=== PATIENT | female | born 1950 | race Caucasian/White ===

== ENCOUNTER 2020-11-18 15:03 | Outpatient (REF) | payer MEDICARE, MEDICAID, OTHER, SELFPAY | END 2020-11-18 15:04 | disposition home or self-care (01) | LOC: HO.LAB 15:03 | PROVIDERS: Visit Provider Internal Medicine | DX: Z20.828 Contact with and (suspected) exposure to other viral communicable diseases (principal) | CPT/HCPCS: C9803; U0003 ==

== ENCOUNTER 2022-12-31 14:50 | Inpatient (IN) | payer MEDICARE, OTHER, SELFPAY ==
[2022-12-31] VITALS (19 sets, daily range): BP systolic 104–148; BP diastolic 66–92; PULSE 98–120; RESP 16–33; TEMP 36.4–37.2; O2SAT 92–100; BMI 27.3
--- NOTE | ~2022-12-31 | CT_ITS ---
EXAMINATION: CT abdomen pelvis wo IV con CLINICAL INFORMATION: Reason for Exam Constipation/urinary retention. lump in RLQ COMPARISON: No prior CT available for comparison. TECHNIQUE: Multidetector volumetric imaging was performed from the superior aspect of the liver through the pubic symphysis , noncontrasted study. Sagittal and coronal reformatted images were obtained on the technologist's workstation. This CT examination was performed using dose optimization techniques as appropriate, variously including the following: *Automated exposure control *Adjustment of mA and/or kV according to patient size (this includes techniques or standardized protocols for targeted exams where dose is matched to indication/reason for exam; i.e. extremities or head) *Use of iterative reconstruction technique DLP: 582 mGy-cm FINDINGS: LOWER THORAX: Included lung bases are clear. HEPATOBILIARY: No focal hepatic lesions. No biliary ductal dilatation. GALLBLADDER: There is a tiny gallstone, gallbladder is distended. SPLEEN: Spleen is normal in size. PANCREAS: No focal mass or ductal dilatation. STOMACH AND GASTROINTESTINAL TRACT: Stomach is fluid-filled distended. Dilated small bowels, transition zone within hernia right inguinal region containing loops of small bowel's the hernia measure roughly 7 x 6.3 cm. The neck of which is about 3 cm. There is no CT evidence of bowel perforation or free air. This is concerning for possible small bowel incarceration and/or strangulation. No CT evidence of appendicitis. ADRENALS: No adrenal nodules. KIDNEYS/URETERS: No hydronephrosis, stones or solid mass lesions. URINARY BLADDER: Partially decompressed. PELVIC VISCERA: Unremarkable PERITONEUM: No free air or fluid. LYMPH NODES: No lymphadenopathy. VASCULAR:Abdominal aorta normal in size, no aneurysm found. BONES, ABDOMINAL WALL AND SOFT TISSUES: Hardware ORIF left femur causing beam hardening artifact. Otherwise unremarkable. Age-appropriate changes of the spine and skeletal system, no destructive osteolytic or osteosclerotic bone lesion found CT/CT abdomen pelvis wo IV con IMPRESSION: * High-grade small bowel obstruction, transition zone within a right inguinal hernia containing loops of small bowel, the neck of which is about 3 cm. There is no CT evidence of bowel perforation or free air at this time. * Urgent surgical evaluation warranted. * Tiny gallstone. Cholelithiasis. (Referring physician staff is being called, to be alerted of the above findings and recommendations.) TC
--- NOTE | ~2022-12-31 | XR_ITS ---
EXAMINATION: XR CHEST CLINICAL INFORMATION: AML COMPARISON: None TECHNIQUE: Frontal view of the chest was obtained. FINDINGS: No significant abnormality is noted involving the heart, lungs, mediastinum, bony thorax or soft tissues. XR/XR chest 1V IMPRESSION: Unremarkable examination.
--- NOTE | 2022-12-31 15:14 | ED_ITS ---
HPI - Female Genitourinary General Chief complaint: Urogenital-Female <LUCAS Arteaga - Last Filed: 12/31/22 15:20> Stated complaint: unable to use bathroom, hallucination <LUCAS Arteaga - Last Filed: 12/31/22 15:20> Time Seen by Provider: 12/31/22 17:08 <LUCAS Arteaga - Last Filed: 12/31/22 15:20> Source: patient and family <Sera Conway NP - Last Filed: 12/31/22 18:50> Mode of arrival: ambulatory <Sera Conway NP - Last Filed: 12/31/22 18:50> Limitations: language barrier <Sera Conway NP - Last Filed: 12/31/22 18:50> History of Present Illness HPI Narrative: 72-year-old female presents with daughter, for evaluation for inability to pass bowels and urine for 3 days, abdominal pain, nausea, poor p.o. intake, and abdominal distention. Patient has dementia per baseline, is able to make her needs known but is not the best historian. <Sera Conway NP - Last Filed: 12/31/22 18:50> Onset (ago): day(s) <Sera Conway NP - Last Filed: 12/31/22 18:50> Severity: severe <Sera Conway NP - Last Filed: 12/31/22 18:50> Severity scale (1-10): 10 <Sera Conway NP - Last Filed: 12/31/22 18:50> Quality of pain: cramping and aching <Sera Conway NP - Last Filed: 12/31/22 18:50> Consistency: constant <Sera Conway NP - Last Filed: 12/31/22 18:50> Urinary symptoms: Difficulty Urinating (Oliguria) <Sera Conway NP - Last Filed: 12/31/22 18:50> Exacerbating factors: movement and palpation <Sera Conway NP - Last Filed: 12/31/22 18:50> Relieving factors: none <Sera Conway NP - Last Filed: 12/31/22 18:50> Associated symptoms: abdominal pain, loss of appetite, chills, nausea and constipation <JANEEN Vicente Last Filed: 12/31/22 18:50> Treatment prior to arrival: none <Sera Conway NP - Last Filed: 12/31/22 18:50> Sexual activity: No <JANEEN Vicente Last Filed: 12/31/22 18:50> Patient : No <Sera Conway NP - Last Filed: 12/31/22 18:50> Related Data Home medications: Home Medications Medication Instructions Recorded Confirmed amlodipine 10 mg tablet 1 tab PO DAILY 12/31/22 12/31/22 cholecalciferol (vitamin D3) 50 1 tab PO BEDTIME 12/31/22 12/31/22 mcg (2,000 unit) tablet escitalopram oxalate 10 mg tablet 1 tab PO DAILY 12/31/22 12/31/22 losartan 25 mg tablet 1 tab PO BEDTIME 12/31/22 12/31/22 memantine 5 mg tablet 1 tab PO BEDTIME 12/31/22 12/31/22 simethicone 180 mg capsule 1 cap PO BID 12/31/22 12/31/22 <LUCAS Arteaga Last Filed: 12/31/22 15:20> Allergies/Adverse reactions: Allergies Allergy/AdvReac Type Severity Reaction Status Date / Time No Known Allergies Allergy Verified 12/31/22 15:13 <LUCAS Arteaga Last Filed: 12/31/22 15:20> Review of Systems Review of Systems: Constitutional: No Fever, positive Chills ENT/Mouth: No Ear Pain, No Hoarseness, No sore throat Eyes: No Eye Pain, No Swelling, No Redness, No Foreign Body Cardiovascular: No Chest Pain, No SOB Respiratory: No Cough, No Dyspnea Gastrointestinal: Positive Nausea, No Vomiting, of constipation, No Diarrhea, positive abdominal Pain, positive distention Genitourinary: Positive oliguria, No Dysuria, No Hematuria Musculoskeletal: No joint pain, No Myalgias, No Joint Swelling Skin: No Skin lacerations, No rash Neuro: Positive Weakness, No Numbness, No Paresthesias, No Loss of Consciousness, No Dizziness, No Headache <JANEEN Vicente Last Filed: 12/31/22 18:50> Yes Unobtainable due to mental condition (Dementia, ROS obtained from daughter) <Sera Conway NP - Last Filed: 12/31/22 18:50> [facility] Past Medical History Attestation statement: The following information was validated with the patient. <Sera Conway NP - Last Filed: 12/31/22 18:50> Source: old records reviewed <Sera Conway NP - Last Filed: 12/31/22 18:50> Social History Social History: Social History Advance Directives: No Advance Directives Information Provided: No Patient : No <LUCAS Arteaga - Last Filed: 12/31/22 15:20> Physical Exam Vital Signs: Vital Signs: Last Vital Signs Temp 97.6 F 12/31/22 16:34 Pulse 105 H 12/31/22 16:34 Resp 16 12/31/22 16:34 BP 139/81 12/31/22 16:34 Pulse Ox 100 12/31/22 16:34 O2 Del Method 12/31/22 16:34 BMI result Body Mass Index 27.3 <LUCAS Arteaga - Last Filed: 12/31/22 15:20> Vital Signs: Last Vital Signs Temp 97.6 F 12/31/22 16:34 Pulse 105 H 12/31/22 16:34 Resp 16 12/31/22 16:34 BP 139/81 12/31/22 16:34 Pulse Ox 100 12/31/22 16:34 O2 Del Method 12/31/22 16:34 BMI result Body Mass Index 27.3 <Sera Conway NP - Last Filed: 12/31/22 18:50> Appearance: Alert. Oriented to self. Moderate distress. Eyes: Pupils equal, round and reactive to light. ENT: Pharynx normal. Neck: Normal inspection. Neck supple. CVS: Normal heart rate and rhythm. Pulses normal. Respiratory: No respiratory distress. Breath sounds normal. Abdomen: Soft and diffusely tender and distended. Skin: Skin warm and dry. Normal skin color. Normal skin turgor. Extremities: No lower extremity edema. Moves all extremities against resistanc e. Gait not assessed for safety. Neuro: No motor deficit. No sensory deficit. Cranial nerves 2-12 intact <Sera Conway NP - Last Filed: 12/31/22 18:50> Course Course Course Narrative: RME-- 72yo F w/PMHx dementia presenting to the ED complaining of constipation & urinary retention x3 days. Daughter also reports palpable lump to right lower quadrant. Patient with baseline dementia, daughter reports increasing confusion/agitation. Patient mildly tachycardic, shaky, Palpable lump to RLQ, abd soft. Low suspicion for severe sepsis at this time EKG, labs, UA ordered in triage <LUCAS Arteaga - Last Filed: 12/31/22 15:20> RME-- 72yo F w/PMHx dementia presenting to the ED complaining of constipation & urinary retention x3 days. Daughter also reports palpable lump to right lower quadrant. Patient with baseline dementia, daughter reports increasing confusion/agitation. Patient mildly tachycardic, shaky, Palpable lump to RLQ, abd soft. Low suspicion for severe sepsis at this time EKG, labs, UA ordered in triage 16:[address] scan were completed while she was in the emergency department waiting room. A review of the CT scan indicates critical findings of small-bowel obstruction. I did call the surgeon continuity reader as soon as I read this result, white count indicates 18.9, will order lactic, cultures, given Zosyn, 2 L of fluid to equal 30 milliliters/kilogram 63 kg per weight. Will give morphine, Zofran, and NG tube placement. 18:38 consent was obtained for moderate sedation for incarcerated hernia reduction, All questions answered by this TREE FALLER and surgeon For the family. patient's daughter signed the consent, patient's daughter is a primary caregiver, patient does have dementia and is unable to consent on her own. Dr. Staley at bedside with this TREE FALLER. In total patient received 50 mcg of fentanyl and 50 mg of propofol. Vital signs were within normal limits, no adverse reactions during moderate sedation. Dr. Staley unable to successfully reduce the hernia, plan of care is for surgical intervention. <Sera Conway NP - Last Filed: 12/31/22 18:50> Consultations Consultation #1: Rebeka <Sera Conwya NP - Last Filed: 12/31/22 18:50> Medical Decision Making Differential Diagnosis Differential Diagnoses: The differential diagnosis associated with the presentation includes <Sera Conway NP - Last Filed: 12/31/22 18:50> SBO <Sear Conway NP - Last Filed: 12/31/22 18:50> Admission/Observation Consideration of admission/observation: Escalation of care including admission/observation considered <Sera Conway NP - Last Filed: 12/31/22 18:50> Requires admission <Sera Conway NP - Last Filed: 12/31/22 18:50> Consult Healthcare Provider Management of the patient was discussed with: Program Counselor <Sera Conway NP - Last Filed: 12/31/22 18:50> Surgery <Sera Conway NP - Last Filed: 12/31/22 18:50> Lab Data MDM Lab Attestation statement: I reviewed the patient's lab results. <Sera Conway NP - Last Filed: 12/31/22 18:50> Result Diagrams: 12/31/22 16:26 12/31/22 16:25 <LUCAS Arteaga - Last Filed: 12/31/22 15:20> Labs: Lab Results 12/31/22 12/31/22 12/31/22 Range/Units 16:25 16:25 16:25 WBC (4.8-10.8) X10*3/uL RBC (4.20-5.50) X10*6/uL Hgb (12.0-16.0) g/dl Hct (37.0-47.0) % MCV (80.0-98.0) fL MCH (27.0-33.0) pg MCHC (31.0-35.0) g/dl RDW (11.0-16.0) % Plt Count (160-400) X10*3/uL MPV (9.4-12.3) fL Immature Gran % (Auto) Neut % (Auto) Lymph % (Auto) Mclennan % (Auto) Eos % (Auto) Baso % (Auto) Lymph # (Auto) Mclennan # (Auto) Eos # (Auto) Baso # (Auto) Abs Immat Gran (auto) Absolute Neuts (auto) Absolute Nucleated RBC (0.0-0.012) X10*3/uL Nucleated RBC % (auto) (0.0-0.2) /100WBC Neutrophils % (Manual) (45-73) % Band Neutrophils % (3-5) % Lymphocytes % (Manual) (20-40) % Monocytes % (Manual) (2-11) % Abs Neuts (Manual) (2.0-8.3) X10*3/uL Lymphocytes # (Manual) (1.2-4.9) X10*3/uL Monocytes # (Manual) (0.1-1.2) X10*3/uL Platelet Estimate (NORMAL) Plt Morphology Comment RBC Morphology PT (10.0-13.1) SEC INR (0.9-1.1) Sodium 136 (135-145) mmol/L Potassium 4.3 (3.3-5.1) mmol/L Chloride 98 (96-108) mmol/L Carbon Dioxide 19 L (22-29) mmol/L Anion Gap 23 H (12-20) BUN 41 H (9-16) mg/dL Creatinine 1.83 H (0.5-1.4) mg/dL Estim Creat Clear Calc 23.4 Estimated GFR 27 Random Glucose 167 H (60-115) mg/dL Lactic Acid (0.5-2.0) mmol/L Calcium 9.9 (8.4-10.2) mg/dL Magnesium 1.8 (1.6-2.6) mg/dL Total Bilirubin 0.9 (0.0-1.0) mg/dL Direct Bilirubin 0.4 (0.0-0.5) mg/dL AST 15 (5-31) U/L ALT 10 (0-31) U/L Alkaline Phosphatase 88 (39-117) U/L Ammonia 34 (13-55) umol/L Troponin I High Sens 10.2 (<3.5-17.0) ng/L Total Protein 7.4 (6.5-8.0) g/dL Albumin 4.4 (3.5-5.0) g/dL Lipase 13 (8-78) U/L Influenza Type A (PCR) (Negative) Influenza Type B (PCR) (Negative) RSV RNA Qual (PCR) (Negative) SARS-CoV-2 RNA (RT-PCR) (Negative) 12/31/22 12/31/22 12/31/22 Range/Units 16:26 16:26 16:26 WBC 18.6 H (4.8-10.8) X10*3/uL RBC 5.02 (4.20-5.50) X10*6/uL Hgb 14.6 (12.0-16.0) g/dl Hct 44.5 (37.0-47.0) % MCV 88.6 (80.0-98.0) fL MCH 29.1 (27.0-33.0) pg MCHC 32.8 (31.0-35.0) g/dl RDW 12.5 (11.0-16.0) % Plt Count 458 H (160-400) X10*3/uL MPV 9.8 (9.4-12.3) fL Immature Gran % (Auto) Cancelled Neut % (Auto) Cancelled Lymph % (Auto) Cancelled Mclennan % (Auto) Cancelled Eos % (Auto) Cancelled Baso % (Auto) Cancelled Lymph # (Auto) Cancelled Mclennan # (Auto) Cancelled Eos # (Auto) Cancelled Baso # (Auto) Cancelled Abs Immat Gran (auto) Cancelled Absolute Neuts (auto) Cancelled Absolute Nucleated RBC 0.000 (0.0-0.012) X10*3/uL Nucleated RBC % (auto) 0.0 (0.0-0.2) /100WBC Neutrophils % (Manual) 88 H (45-73) % Band Neutrophils % 0 L (3-5) % Lymphocytes % (Manual) 4 L (20-40) % Monocytes % (Manual) 8 (2-11) % Abs Neuts (Manual) 16.4 H (2.0-8.3) X10*3/uL Lymphocytes # (Manual) 0.7 L (1.2-4.9) X10*3/uL Monocytes # (Manual) 1.5 H (0.1-1.2) X10*3/uL Platelet Estimate NORMAL (NORMAL) Plt Morphology Comment NORMAL RBC Morphology NORMAL PT 12.1 (10.0-13.1) SEC INR 1.1 (0.9-1.1) Sodium (135-145) mmol/L Potassium (3.3-5.1) mmol/L Chloride (96-108) mmol/L Carbon Dioxide (22-29) mmol/L Anion Gap (12-20) BUN (9-16) mg/dL Creatinine (0.5-1.4) mg/dL Estim Creat Clear Calc Estimated GFR Random Glucose (60-115) mg/dL Lactic Acid (0.5-2.0) mmol/L Calcium (8.4-10.2) mg/dL Magnesium (1.6-2.6) mg/dL Total Bilirubin (0.0-1.0) mg/dL Direct Bilirubin (0.0-0.5) mg/dL AST (5-31) U/L ALT (0-31) U/L Alkaline Phosphatase (39-117) U/L Ammonia (13-55) umol/L Troponin I High Sens (<3.5-17.0) ng/L Total Protein (6.5-8.0) g/dL Albumin (3.5-5.0) g/dL Lipase (8-78) U/L Influenza Type A (PCR) NEGATIVE (Negative) Influenza Type B (PCR) NEGATIVE (Negative) RSV RNA Qual (PCR) NEGATIVE (Negative) SARS-CoV-2 RNA (RT-PCR) NEGATIVE (Negative) 12/31/22 Range/Units 17:59 WBC (4.8-10.8) X10*3/uL RBC (4.20-5.50) X10*6/uL Hgb (12.0-16.0) g/dl Hct (37.0-47.0) % MCV (80.0-98.0) fL MCH (27.0-33.0) pg MCHC (31.0-35.0) g/dl RDW (11.0-16.0) % Plt Count (160-400) X10*3/uL MPV (9.4-12.3) fL Immature Gran % (Auto) Neut % (Auto) Lymph % (Auto) Mclennan % (Auto) Eos % (Auto) Baso % (Auto) Lymph # (Auto) Mclennan # (Auto) Eos # (Auto) Baso # (Auto) Abs Immat Gran (auto) Absolute Neuts (auto) Absolute Nucleated RBC (0.0-0.012) X10*3/uL Nucleated RBC % (auto) (0.0-0.2) /100WBC Neutrophils % (Manual) (45-73) % Band Neutrophils % (3-5) % Lymphocytes % (Manual) (20-40) % Monocytes % (Manual) (2-11) % Abs Neuts (Manual) (2.0-8.3) X10*3/uL Lymphocytes # (Manual) (1.2-4.9) X10*3/uL Monocytes # (Manual) (0.1-1.2) X10*3/uL Platelet Estimate (NORMAL) Plt Morphology Comment RBC Morphology PT (10.0-13.1) SEC INR (0.9-1.1) Sodium (135-145) mmol/L Potassium (3.3-5.1) mmol/L Chloride (96-108) mmol/L Carbon Dioxide (22-29) mmol/L Anion Gap (12-20) BUN (9-16) mg/dL Creatinine (0.5-1.4) mg/dL Estim Creat Clear Calc Estimated GFR Random Glucose (60-115) mg/dL Lactic Acid 1.1 (0.5-2.0) mmol/L Calcium (8.4-10.2) mg/dL Magnesium (1.6-2.6) mg/dL Total Bilirubin (0.0-1.0) mg/dL Direct Bilirubin (0.0-0.5) mg/dL AST (5-31) U/L ALT (0-31) U/L Alkaline Phosphatase (39-117) U/L Ammonia (13-55) umol/L Troponin I High Sens (<3.5-17.0) ng/L Total Protein (6.5-8.0) g/dL Albumin (3.5-5.0) g/dL Lipase (8-78) U/L Influenza Type A (PCR) (Negative) Influenza Type B (PCR) (Negative) RSV RNA Qual (PCR) (Negative) SARS-CoV-2 RNA (RT-PCR) (Negative) <LUCAS Arteaga - Last Filed: 12/31/22 15:20> Lab Results 12/31/22 12/31/22 12/31/22 Range/Units 16:25 16:25 16:25 WBC (4.8-10.8) X10*3/uL RBC (4.20-5.50) X10*6/uL Hgb (12.0-16.0) g/dl Hct (37.0-47.0) % MCV (80.0-98.0) fL MCH (27.0-33.0) pg MCHC (31.0-35.0) g/dl RDW (11.0-16.0) % Plt Count (160-400) X10*3/uL MPV (9.4-12.3) fL Immature Gran % (Auto) Neut % (Auto) Lymph % (Auto) Mclennan % (Auto) Eos % (Auto) Baso % (Auto) Lymph # (Auto) Mclennan # (Auto) Eos # (Auto) Baso # (Auto) Abs Immat Gran (auto) Absolute Neuts (auto) Absolute Nucleated RBC (0.0-0.012) X10*3/uL Nucleated RBC % (auto) (0.0-0.2) /100WBC Neutrophils % (Manual) (45-73) % Band Neutrophils % (3-5) % Lymphocytes % (Manual) (20-40) % Monocytes % (Manual) (2-11) % Abs Neuts (Manual) (2.0-8.3) X10*3/uL Lymphocytes # (Manual) (1.2-4.9) X10*3/uL Monocytes # (Manual) (0.1-1.2) X10*3/uL Platelet Estimate (NORMAL) Plt Morphology Comment RBC Morphology PT (10.0-13.1) SEC INR (0.9-1.1) Sodium 136 (135-145) mmol/L Potassium 4.3 (3.3-5.1) mmol/L Chloride 98 (96-108) mmol/L Carbon Dioxide 19 L (22-29) mmol/L Anion Gap 23 H (12-20) BUN 41 H (9-16) mg/dL Creatinine 1.83 H (0.5-1.4) mg/dL Estim Creat Clear Calc 23.4 Estimated GFR 27 Random Glucose 167 H (60-115) mg/dL Lactic Acid (0.5-2.0) mmol/L Calcium 9.9 (8.4-10.2) mg/dL Magnesium 1.8 (1.6-2.6) mg/dL Total Bilirubin 0.9 (0.0-1.0) mg/dL Direct Bilirubin 0.4 (0.0-0.5) mg/dL AST 15 (5-31) U/L ALT 10 (0-31) U/L Alkaline Phosphatase 88 (39-117) U/L Ammonia 34 (13-55) umol/L Troponin I High Sens 10.2 (<3.5-17.0) ng/L Total Protein 7.4 (6.5-8.0) g/dL Albumin 4.4 (3.5-5.0) g/dL Lipase 13 (8-78) U/L Influenza Type A (PCR) (Negative) Influenza Type B (PCR) (Negative) RSV RNA Qual (PCR) (Negative) SARS-CoV-2 RNA (RT-PCR) (Negative) 12/31/22 12/31/22 12/31/22 Range/Units 16:26 16:26 16:26 WBC 18.6 H (4.8-10.8) X10*3/uL RBC 5.02 (4.20-5.50) X10*6/uL Hgb 14.6 (12.0-16.0) g/dl Hct 44.5 (37.0-47.0) % MCV 88.6 (80.0-98.0) fL MCH 29.1 (27.0-33.0) pg MCHC 32.8 (31.0-35.0) g/dl RDW 12.5 (11.0-16.0) % Plt Count 458 H (160-400) X10*3/uL MPV 9.8 (9.4-12.3) fL Immature Gran % (Auto) Cancelled Neut % (Auto) Cancelled Lymph % (Auto) Cancelled Mclennan % (Auto) Cancelled Eos % (Auto) Cancelled Baso % (Auto) Cancelled Lymph # (Auto) Cancelled Mclennan # (Auto) Cancelled Eos # (Auto) Cancelled Baso # (Auto) Cancelled Abs Immat Gran (auto) Cancelled Absolute Neuts (auto) Cancelled Absolute Nucleated RBC 0.000 (0.0-0.012) X10*3/uL Nucleated RBC % (auto) 0.0 (0.0-0.2) /100WBC Neutrophils % (Manual) 88 H (45-73) % Band Neutrophils % 0 L (3-5) % Lymphocytes % (Manual) 4 L (20-40) % Monocytes % (Manual) 8 (2-11) % Abs Neuts (Manual) 16.4 H (2.0-8.3) X10*3/uL Lymphocytes # (Manual) 0.7 L (1.2-4.9) X10*3/uL Monocytes # (Manual) 1.5 H (0.1-1.2) X10*3/uL Platelet Estimate NORMAL (NORMAL) Plt Morphology Comment NORMAL RBC Morphology NORMAL PT 12.1 (10.0-13.1) SEC INR 1.1 (0.9-1.1) Sodium (135-145) mmol/L Potassium (3.3-5.1) mmol/L Chloride (96-108) mmol/L Carbon Dioxide (22-29) mmol/L Anion Gap (12-20) BUN (9-16) mg/dL Creatinine (0.5-1.4) mg/dL Estim Creat Clear Calc Estimated GFR Random Glucose (60-115) mg/dL Lactic Acid (0.5-2.0) mmol/L Calcium (8.4-10.2) mg/dL Magnesium (1.6-2.6) mg/dL Total Bilirubin (0.0-1.0) mg/dL Direct Bilirubin (0.0-0.5) mg/dL AST (5-31) U/L ALT (0-31) U/L Alkaline Phosphatase (39-117) U/L Ammonia (13-55) umol/L Troponin I High Sens (<3.5-17.0) ng/L Total Protein (6.5-8.0) g/dL Albumin (3.5-5.0) g/dL Lipase (8-78) U/L Influenza Type A (PCR) NEGATIVE (Negative) Influenza Type B (PCR) NEGATIVE (Negative) RSV RNA Qual (PCR) NEGATIVE (Negative) SARS-CoV-2 RNA (RT-PCR) NEGATIVE (Negative) 12/31/22 Range/Units 17:59 WBC (4.8-10.8) X10*3/uL RBC (4.20-5.50) X10*6/uL Hgb (12.0-16.0) g/dl Hct (37.0-47.0) % MCV (80.0-98.0) fL MCH (27.0-33.0) pg MCHC (31.0-35.0) g/dl RDW (11.0-16.0) % Plt Count (160-400) X10*3/uL MPV (9.4-12.3) fL Immature Gran % (Auto) Neut % (Auto) Lymph % (Auto) Mclennan % (Auto) Eos % (Auto) Baso % (Auto) Lymph # (Auto) Mclennan # (Auto) Eos # (Auto) Baso # (Auto) Abs Immat Gran (auto) Absolute Neuts (auto) Absolute Nucleated RBC (0.0-0.012) X10*3/uL Nucleated RBC % (auto) (0.0-0.2) /100WBC Neutrophils % (Manual) (45-73) % Band Neutrophils % (3-5) % Lymphocytes % (Manual) (20-40) % Monocytes % (Manual) (2-11) % Abs Neuts (Manual) (2.0-8.3) X10*3/uL Lymphocytes # (Manual) (1.2-4.9) X10*3/uL Monocytes # (Manual) (0.1-1.2) X10*3/uL Platelet Estimate (NORMAL) Plt Morphology Comment RBC Morphology PT (10.0-13.1) SEC INR (0.9-1.1) Sodium (135-145) mmol/L Potassium (3.3-5.1) mmol/L Chloride (96-108) mmol/L Carbon Dioxide (22-29) mmol/L Anion Gap (12-20) BUN (9-16) mg/dL Creatinine (0.5-1.4) mg/dL Estim Creat Clear Calc Estimated GFR Random Glucose (60-115) mg/dL Lactic Acid 1.1 (0.5-2.0) mmol/L Calcium (8.4-10.2) mg/dL Magnesium (1.6-2.6) mg/dL Total Bilirubin (0.0-1.0) mg/dL Direct Bilirubin (0.0-0.5) mg/dL AST (5-31) U/L ALT (0-31) U/L Alkaline Phosphatase (39-117) U/L Ammonia (13-55) umol/L Troponin I High Sens (<3.5-17.0) ng/L Total Protein (6.5-8.0) g/dL Albumin (3.5-5.0) g/dL Lipase (8-78) U/L Influenza Type A (PCR) (Negative) Influenza Type B (PCR) (Negative) RSV RNA Qual (PCR) (Negative) SARS-CoV-2 RNA (RT-PCR) (Negative) <Sera Conway NP - Last Filed: 12/31/22 18:50> Independent Interpretation I performed an independent interpretation of an: Plain X-Ray and CT Scan <Sera Conway NP - Last Filed: 12/31/22 18:50> Interpretation: Sinus tachycardia with Premature atrial complexes Otherwise normal ECG When compared with ECG of 09-NOV-2002 14:16, Premature atrial complexes are now Present QT has lengthened Vent. rate 109 BPM NH interval 132 ms QRS duration 80 ms QT/QTc 342/460 ms P-R-T axes 4 -14 59 -DEC-2022 16:10:34 <Sera Conway NP - Last Filed: 12/31/22 18:50> Radiology Impression Discussion of test interpretation with radiology: I have reviewed the radiologist's reading. <Sera Conway NP - Last Filed: 12/31/22 18:50> Radiologist Impression: FINDINGS: LOWER THORAX: Included lung bases are clear. HEPATOBILIARY: No focal hepatic lesions. No biliary ductal dilatation. GALLBLADDER: There is a tiny gallstone, gallbladder is distended. SPLEEN: Spleen is normal in size. PANCREAS: No focal mass or ductal dilatation. STOMACH AND GASTROINTESTINAL TRACT: Stomach is fluid-filled distended. Dilated small bowels, transition zone within hernia right inguinal region containing loops of small bowel's the hernia measure roughly 7 x 6.3 cm. The neck of which is about 3 cm. There is no CT evidence of bowel perforation or free air. This is concerning for possible small bowel incarceration and/or strangulation. No CT evidence of appendicitis. ADRENALS: No adrenal nodules. KIDNEYS/URETERS: No hydronephrosis, stones or solid mass lesions. URINARY BLADDER: Partially decompressed. PELVIC VISCERA: Unremarkable PERITONEUM: No free air or fluid. LYMPH NODES: No lymphadenopathy. VASCULAR:Abdominal aorta normal in size, no aneurysm found. BONES, ABDOMINAL WALL AND SOFT TISSUES: Hardware ORIF left femur causing beam hardening artifact. Otherwise unremarkable. Age-appropriate changes of the spine and skeletal system, no destructive osteolytic or osteosclerotic bone lesion found CT/CT abdomen pelvis wo IV con IMPRESSION: ? *? High-grade small bowel obstruction, transition zone within a right inguinal hernia containing loops of small bowel, the neck of which is about 3 cm. There is no CT evidence of bowel perforation or free air at this time. ? *? Urgent surgical evaluation warranted. ? *? Tiny gallstone. Cholelithiasis. ? (Referring physician staff is being called, to be alerted of the above findings and recommendations.) ? EXAMINATION: XR CHEST CLINICAL INFORMATION: AML COMPARISON: None TECHNIQUE: Frontal view of the chest was obtained. FINDINGS: No significant abnormality is noted involving the heart, lungs, mediastinum, bony thorax or soft tissues. XR/XR chest 1V IMPRESSION: Unremarkable examination. ? <Sera Conway NP - Last Filed: 12/31/22 18:50> Independent Historian Clinical information obtained from an independent historian. History obtained from or confirmed by: Other (Daughter) <Sera Conway NP - Last Filed: 12/31/22 18:50> External Record Review External record reviewed: Outpatient record and Prior outpatient labs <JANEEN Vicente Last Filed: 12/31/22 18:50> Prescription Management I considered prescription management with: Pain Medication and Antibiotic <JANEEN Vicente Last Filed: 12/31/22 18:50> Chronic Conditions Patient?s care impacted by: Other ( Dementia) <JANEEN Vicente Last Filed: 12/31/22 18:50> Social Determinants Patient?s care significantly limited by Social Determinants of Health including: Other Social Determinant of Health <JANEEN Vicente Last Filed: 12/31/22 18:50> Critical Care Time Critical Care Time Critical Care Time: Yes <Sera Conway NP - Last Filed: 12/31/22 18:50> Total Critical Care Time: 75 <Sera Conway NP - Last Filed: 12/31/22 18:50> Attestation: I have personally provided critical care time exclusive of time spent on separately billable procedures. Time includes review of laboratory data, radiology results, discussion with consultants, and monitoring for potential decompensation. Interventions were performed as documented. <Sera Conway NP - Last Filed: 12/31/22 18:50> Discharge Plan Discharge Clinical Impression: Incarcerated hernia, DENISE (acute kidney injury) <LUCAS Arteaga - Last Filed: 12/31/22 15:20>
--- NOTE | 2022-12-31 15:16 | ECG_ITS ---
Test Reason : ams Blood Pressure : / mmHG Vent. Rate : 109 BPM Atrial Rate : 109 BPM P-R Int : 132 ms QRS Dur : 080 ms QT Int : 342 ms P-R-T Axes : 004 -14 059 degrees QTc Int : 460 ms Sinus tachycardia with Premature atrial complexes Otherwise normal ECG When compared with ECG of 09-NOV-2002 14:16, Premature atrial complexes are now Present QT has lengthened Referred By: Zahida Matthews Electronically Signed By:KELLI HENSON MD
[2022-12-31 16:32] LABS: Mean Corpuscular Volume 88.6 fL (80.0-98.0); Mean Platelet Volume 9.8 fL (9.4-12.3)
[2022-12-31 16:38] LABS: Hematocrit 44.5 % (37.0-47.0); Hemoglobin 14.6 g/dl (12.0-16.0); Mean Corpuscular HGB Conc 32.8 g/dl (31.0-35.0); Mean Corpuscular Hemoglobin 29.1 pg (27.0-33.0); Platelet Count 458 X10*3/uL (160-400); Red Blood Count 5.02 X10*6/uL (4.20-5.50); Red Cell Distribution Width 12.5 % (11.0-16.0)
[2022-12-31 16:42] LABS: INTERNATIONAL NORM RATIO 1.1 (0.9-1.1); Prothrombin Time 12.1 SEC (10.0-13.1)
[2022-12-31 16:45] LABS: Ammonia 34 umol/L (13-55)
[2022-12-31 16:55] LABS: Alanine Aminotransferase 10 U/L (0-31); Albumin Level 4.4 g/dL (3.5-5.0); Alkaline Phosphatase 88 U/L (39-117); Anion Gap 23 (12-20); Aspartate Amino Transferase 15 U/L (5-31); Bilirubin Direct 0.4 mg/dL (0.0-0.5); Bilirubin Total 0.9 mg/dL (0.0-1.0); Blood Urea Nitrogen 41 mg/dL (9-16); Calcium 9.9 mg/dL (8.4-10.2); Carbon Dioxide 19 mmol/L (22-29); Chloride 98 mmol/L (96-108); Creatinine Clr Calc Pharmacy 23.4; Estimated Glomerular Filt Rate 27; Glucose Random 167 mg/dL (60-115); Lipase 13 U/L (8-78); Magnesium 1.8 mg/dL (1.6-2.6); Potassium 4.3 mmol/L (3.3-5.1); Sodium 136 mmol/L (135-145); Total Protein 7.4 g/dL (6.5-8.0)
[2022-12-31 16:57] LABS: WBC ABN SCTR FOR CBC 1
[2022-12-31 17:00] LABS: Lymphocytes Percent Manual 4 % (20-40); Monocytes Percent Manual 8 % (2-11); Neutrophils Percent Manual 88 % (45-73)
[2022-12-31 17:01] LABS: Troponin-I High Sensitivity 10.2 ng/L (<3.5-17.0)
[2022-12-31 17:01] LABS: Platelet Estimate NORMAL (NORMAL); Platelet Morphology Comment NORMAL; RBC Morphology NORMAL
[2022-12-31 17:02] LABS: Band Neutrophils Percent 0 % (3-5); Lymphocytes Absolute Manual 0.7 X10*3/uL (1.2-4.9); Monocytes Absolute Manual 1.5 X10*3/uL (0.1-1.2); Neutrophils Absolute Manual 16.4 X10*3/uL (2.0-8.3); White Blood Count 18.6 X10*3/uL (4.8-10.8)
[2022-12-31 17:15] LABS: Influenza A PCR NEGATIVE (Negative); Influenza B PCR NEGATIVE (Negative); Resp Syncy Virus RNA Qual PCR NEGATIVE (Negative); SARS COV2 PCR INHOUSE NEGATIVE (Negative)
[2022-12-31 18:13] LABS: Lactic Acid 1.1 mmol/L (0.5-2.0)
[2022-12-31] MEDS: fentaNYL citrate/PF 100 MCG/2 ML VIAL 50 MCG IVPUSH (18:33)
[2022-12-31] MEDS: propofoL 200 MG/20 ML VIAL 100 MG IVPUSH (18:33)
--- NOTE | 2022-12-31 18:44 | PC.NURSE ---
MD FRANCO AND JANEEN CASTILLO AT BEDSIDE FOR UNSUCCESSFUL REDUCTION OF INCARCERATED HERNIA UNDER CONSCIOUS SEDATION. CRASH CARRT, RT, AND SUCTION READY PER PROTOCOL. PROPOFOL AND FENTANYL USED DURING PROCEDURE PER V/O FROM [facility]. PT RESPONDING TO NOXIOUS STIMULI AT THIS TIME. SINUS TACH IN LOW 100S ON MONITOR, CHEST RISES EVEN AND REGULAR. BP 104/70, SEE VS RECORD.
--- NOTE | 2022-12-31 18:49 | PC.NURSE ---
PER MD FRANCO, NO NGT NEEDED AT THIS TIME. THIS IS TO BE INSERTED DURING SURGERY.
[2022-12-31] MEDS: 0.9 % Sodium Chloride 1,000 ML 999 ML IVCONT (18:54)
[2022-12-31] MEDS: ondansetron HCL 4 MG/2 ML VIAL IVPUSH (18:55)
--- NOTE | 2022-12-31 19:09 | PM.HPGS ---
History of Present Illness History of Present Illness Date of Service: 12/31/22 Chief complaint: unable to use bathroom, hallucination Narrative: Saloni Scott is a 72 year old female a, hypertension who presented with a incarcerated right inguinal hernia causing a complete bowel obstruction. Due to Faroese-speaking, an custom frame assembler was obtained, but the daughter is at the bedside and, the daughter Yana, notes that the patient's dementia prevents a meaningful history. To the best of their knowledge, there has been no prior hernia operations are prior hernia. Patient started having symptoms of urinary difficulty and obstipation yesterday and presented to the emergency department today. Review of Systems Review of Systems: Yes all other systems are reviewed and are negative Constitutional: Constitutional: Reports as per [facility] Social History Social History Advance Directives: No Advance Directives Information Provided: No Patient : No Meds Allergies Allergy/AdvReac Type Severity Reaction Status Date / Time No Known Allergies Allergy Verified 12/31/22 15:13 Home Medications Medication Instructions Recorded Confirmed Last Taken Type amlodipine 10 mg tablet 1 tab PO DAILY 12/31/22 12/31/22 Unknown History cholecalciferol (vitamin D3) 50 1 tab PO BEDTIME 12/31/22 12/31/22 Unknown History mcg (2,000 unit) tablet escitalopram oxalate 10 mg tablet 1 tab PO DAILY 12/31/22 12/31/22 Unknown History losartan 25 mg tablet 1 tab PO BEDTIME 12/31/22 12/31/22 Unknown History memantine 5 mg tablet 1 tab PO BEDTIME 12/31/22 12/31/22 Unknown History simethicone 180 mg capsule 1 cap PO BID 12/31/22 12/31/22 Unknown History Physical Exam Vital Signs: Vital Signs: Last Vital Signs Temp 97.6 F 12/31/22 16:34 Pulse 110 H 12/31/22 18:55 Resp 24 H 12/31/22 18:55 BP 110/77 12/31/22 18:55 Pulse Ox 97 12/31/22 18:55 O2 Del Method 12/31/22 18:55 O2 Flow Rate 1 12/31/22 18:55 Oxygen Flow Rate 2 12/31/22 18:46 BMI result Body Mass Index 27.3 The patient is non-toxic & confused NC/AT, PERRLA, EOMI Mood, affect & judgment all appear appropriate Sclera anicteric conjunctiva pink and moist Oropharynx is clear with no aphthous ulcers, Mallampati class 4, mucous membranes moist Neck is supple with no masses, adenopathy or bruits Heart is regular, normal S1-S2 no rubs or murmurs Lungs are clear and equal anteriorly with no audible wheezing, rubs or dullness to percussion Abdomen is overweight with AN INCARCERATED RIGHT INGUINAL HERNIA. No HSM, rebound, rigidity, guarding, masses or bruits are present. Rectal exam is deferred Skin has good turgor and is free of rashes Extremities free of cyanosis clubbing edema Results Results Labs: Short CBC 12/31/22 Range/Units 16:26 WBC 18.6 H (4.8-10.8) X10*3/uL Hgb 14.6 (12.0-16.0) g/dl Hct 44.5 (37.0-47.0) % Plt Count 458 H (160-400) X10*3/uL BMP 12/31/22 16:25 Sodium 136 Potassium 4.3 Chloride 98 Carbon Dioxide 19 L BUN 41 H Creatinine 1.83 H Calcium 9.9 Liver Function 12/31/22 Range/Units 16:25 Total Bilirubin 0.9 (0.0-1.0) mg/dL Direct Bilirubin 0.4 (0.0-0.5) mg/dL AST 15 (5-31) U/L ALT 10 (0-31) U/L Alkaline Phosphatase 88 (39-117) U/L Albumin 4.4 (3.5-5.0) g/dL Abdomen CT scan report/results: report reviewed and image reviewed CT scan - pelvis: report reviewed and image reviewed Assessment and Plan (1) Incarcerated hernia: Status: Acute (2) DENISE (acute kidney injury): Status: Acute (3) Dementia: Status: Acute (4) HTN (hypertension): Status: Acute Plan Explained to the patient via custom frame assembler and the daughter the need to try to reduce the hernia. This was done with the assistance of the ER staff who provided IV conscious sedation after informed consent was obtained for both surgery and conscious sedation. Explained to the patient and her daughter the inherent risks of emergent surgery, specifically AN OPEN RIGHT INGUINAL HERNIA REPAIR WITH MESH, POSSIBLE BOWEL RESECTION with the inherent risks of bleeding, infection, hernia recurrence, mesh complications and bowel complications related to a bowel resection. The need for a Ye catheter and nasogastric tube was discussed. The patient seemed understand and signed the permission slip. The patient's daughter also had her questions answered and wants to proceed. Ye catheter has been placed. Antibiotics have been started per sepsis protocol. Will proceed with surgery as soon as the OR team is available Time Spent With Patient Time: Total time managing care of this patient today ____ minutes. Quality Stroke Does the patient have a stroke diagnosis?: No VTE Prior VTE?: No VTE Risk Level:: Surgical - moderate VTE Device Contraindication: N/A - Device Ordered VTE Drug Contraindication: Treatment Not Indicated Procedures Date of Service Date of Service: 12/31/22
[2022-12-31] MEDS: Piperacillin Sodium/Tazobactam 3.375 GM in 0.9 % Sodium Chloride 50 ML IV (19:30)
--- NOTE | 2022-12-31 19:35 | HO.ANESPROP2 ---
[facility] Active Problems Active Problems: All Active Problems (Updated 12/31/22 @ 19:12 by Ed Staley MD) HTN (hypertension) (Acute) Dementia (Acute) Incarcerated hernia (Acute) DENISE (acute kidney injury) (Acute) Family History Family history of problems with anesthesia: No Surgical History History of Problems with Anesthesia: No Social History Social History Advance Directives: No Advance Directives Information Provided: No Patient : No Meds Allergies Allergy/AdvReac Type Severity Reaction Status Date / Time No Known Allergies Allergy Verified 12/31/22 15:13 Active Medications: Current Medications Hydromorphone HCl (Hydromorphone Hcl 0.5 Mg/0.5 Ml Syringe) 0.25 mg IVPUSH Q2H PRN; Protocol PRN Reason: Pain, Moderate (Pain Scale 4-6 Lactated Ringer's (Lr) 1,000 mls @ 100 mls/hr IVCONT .Q10H BALTAZAR Ondansetron HCl (Ondansetron Hcl 4 Mg/2 Ml Vial) 4 mg IVPUSH Q6H PRN PRN Reason: Nausea and Vomiting Sodium Chloride (0.9 % Sodium Chloride Flush 3 Ml Syringe) 3 ml IVFLUSH QSHIFT BALTAZAR Home Medications Medication Instructions Recorded Confirmed Last Taken Type amlodipine 10 mg tablet 1 tab PO DAILY 12/31/22 12/31/22 Unknown History cholecalciferol (vitamin D3) 50 1 tab PO BEDTIME 12/31/22 12/31/22 Unknown History mcg (2,000 unit) tablet escitalopram oxalate 10 mg tablet 1 tab PO DAILY 12/31/22 12/31/22 Unknown History losartan 25 mg tablet 1 tab PO BEDTIME 12/31/22 12/31/22 Unknown History memantine 5 mg tablet 1 tab PO BEDTIME 12/31/22 12/31/22 Unknown History simethicone 180 mg capsule 1 cap PO BID 12/31/22 12/31/22 Unknown History Exam Exam Date and Time: December 31, 20221934 Height,Weight and Vital Signs: Height 5 ft Weight 63.503 kg Last Vital Signs Temp 97.6 F 12/31/22 16:34 Pulse 110 H 12/31/22 18:55 Resp 24 H 12/31/22 18:55 BP 110/77 12/31/22 18:55 Pulse Ox 97 12/31/22 18:55 O2 Del Method 12/31/22 18:55 O2 Flow Rate 1 12/31/22 18:55 Oxygen Flow Rate 2 12/31/22 18:46 Pertinent Lab Results Pertinent Lab Results: Laboratory Tests 12/31/22 12/31/22 12/31/22 16:25 16:25 16:25 WBC RBC Hgb Hct MCV MCH MCHC RDW Plt Count MPV Immature Gran % (Auto) Neut % (Auto) Lymph % (Auto) Blanco % (Auto) Eos % (Auto) Baso % (Auto) Lymph # (Auto) Blanco # (Auto) Eos # (Auto) Baso # (Auto) Abs Immat Gran (auto) Absolute Neuts (auto) Absolute Nucleated RBC Nucleated RBC % (auto) Neutrophils % (Manual) Band Neutrophils % Lymphocytes % (Manual) Monocytes % (Manual) Abs Neuts (Manual) Lymphocytes # (Manual) Monocytes # (Manual) Platelet Estimate Plt Morphology Comment RBC Morphology PT INR Sodium 136 Potassium 4.3 Chloride 98 Carbon Dioxide 19 L Anion Gap 23 H BUN 41 H Creatinine 1.83 H Estim Creat Clear Calc 23.4 Estimated GFR 27 Random Glucose 167 H Lactic Acid Calcium 9.9 Magnesium 1.8 Total Bilirubin 0.9 Direct Bilirubin 0.4 AST 15 ALT 10 Alkaline Phosphatase 88 Ammonia 34 Troponin I High Sens 10.2 Total Protein 7.4 Albumin 4.4 Lipase 13 Influenza Type A (PCR) Influenza Type B (PCR) RSV RNA Qual (PCR) SARS-CoV-2 RNA (RT-PCR) 12/31/22 12/31/22 12/31/22 16:26 16:26 16:26 WBC 18.6 H RBC 5.02 Hgb 14.6 Hct 44.5 MCV 88.6 MCH 29.1 MCHC 32.8 RDW 12.5 Plt Count 458 H MPV 9.8 Immature Gran % (Auto) Cancelled Neut % (Auto) Cancelled Lymph % (Auto) Cancelled Blanco % (Auto) Cancelled Eos % (Auto) Cancelled Baso % (Auto) Cancelled Lymph # (Auto) Cancelled Blanco # (Auto) Cancelled Eos # (Auto) Cancelled Baso # (Auto) Cancelled Abs Immat Gran (auto) Cancelled Absolute Neuts (auto) Cancelled Absolute Nucleated RBC 0.000 Nucleated RBC % (auto) 0.0 Neutrophils % (Manual) 88 H Band Neutrophils % 0 L Lymphocytes % (Manual) 4 L Monocytes % (Manual) 8 Abs Neuts (Manual) 16.4 H Lymphocytes # (Manual) 0.7 L Monocytes # (Manual) 1.5 H Platelet Estimate NORMAL Plt Morphology Comment NORMAL RBC Morphology NORMAL PT 12.1 INR 1.1 Sodium Potassium Chloride Carbon Dioxide Anion Gap BUN Creatinine Estim Creat Clear Calc Estimated GFR Random Glucose Lactic Acid Calcium Magnesium Total Bilirubin Direct Bilirubin AST ALT Alkaline Phosphatase Ammonia Troponin I High Sens Total Protein Albumin Lipase Influenza Type A (PCR) NEGATIVE Influenza Type B (PCR) NEGATIVE RSV RNA Qual (PCR) NEGATIVE SARS-CoV-2 RNA (RT-PCR) NEGATIVE 12/31/22 17:59 WBC RBC Hgb Hct MCV MCH MCHC RDW Plt Count MPV Immature Gran % (Auto) Neut % (Auto) Lymph % (Auto) Blanco % (Auto) Eos % (Auto) Baso % (Auto) Lymph # (Auto) Blanco # (Auto) Eos # (Auto) Baso # (Auto) Abs Immat Gran (auto) Absolute Neuts (auto) Absolute Nucleated RBC Nucleated RBC % (auto) Neutrophils % (Manual) Band Neutrophils % Lymphocytes % (Manual) Monocytes % (Manual) Abs Neuts (Manual) Lymphocytes # (Manual) Monocytes # (Manual) Platelet Estimate Plt Morphology Comment RBC Morphology PT INR Sodium Potassium Chloride Carbon Dioxide Anion Gap BUN Creatinine Estim Creat Clear Calc Estimated GFR Random Glucose Lactic Acid 1.1 Calcium Magnesium Total Bilirubin Direct Bilirubin AST ALT Alkaline Phosphatase Ammonia Troponin I High Sens Total Protein Albumin Lipase Influenza Type A (PCR) Influenza Type B (PCR) RSV RNA Qual (PCR) SARS-CoV-2 RNA (RT-PCR) Airway Mallampati Class: II TM Dist: >3cm Neck ROM: Full Assessment and Plan Assessment Anesthesia Assessment: Anesthesia Plan Discussed and Chart Reviewed Final Anesthetic Review Family History of Problems with Anesthesia: No History of Problems with Anesthesia: No NPO: Yes ASA Class: III and Emergency Final Preanesthetic Review: No Changes in Pt Med Stat, Meds/Allgs Chart Reviewed, Consent Obtained/Reviewed and Anes Risks/Benef Reviewed Patient Risk: Intermediate Procedure Risk: Intermediate Anesthetic Plan Anesthetic Plan: GA Disposition: Standard PACU
--- NOTE | 2022-12-31 19:38 | P.OP_ITS ---
Operative Note Operative Note Date of Service: 12/31/22 Narrative: Preop diagnosis: [Incarcerated right inguinal hernia causing complete bowel obstruction] Postop diagnosis: [Incarcerated right femoral hernia 2 cm defect causing complete bowel obstruction; dusky but viable appearing small bowel] Procedure: [Open Right femoral hernia repair with lysis of adhesions and plug repair] Surgeon: Ed Staley MD Assist: [] Anesthesia: [General endotracheal; local is Marcaine, 0.5% with epi] Estimated blood loss: [3cc] Specimen: [Hernia sac] Intraoperative findings: [Dusky but apparently viable small bowel, approximately 15 cm of small bowel with adhesions along the serosa an S configuration causing obstruction; 2 cm femoral canal defect closed with polypropylene plug] Indications: [The patient is a 72-year-old woman with a history of hypertension and dementia who presented with a complete bowel obstruction secondary to an incarcerated right inguinal hernia containing bowel demonstrated on CT and a leukocytosis. Multiple attempts to reduce the hernia including IV conscious sedation failed, so operative repair was indicated. Before the patient had been sedated, I explained to the patient and her daughter, Yana, the risks of open right inguinal hernia repair with mesh and the possible need for a small bowel resection. These risks include, but are not limited to: Bleeding, infection, hernia recurrence, the need for a bowel resection with anastomosis if the i ntestine his diet and the possibility of complications related to this aspect of the procedure. The risks of cardiopulmonary strain and were all discussed. The patient and her daughter seemed to have their questions answered and wanted to proceed.] Procedure: [The patient was identified in the preoperative holding area. I had marked the operative site myself in the emergency room. A Ye catheter had been placed in the emergency room. She was brought into or room 3 and placed supine on the table. She was induced in general endotracheal anesthesia administered with excellent effect. Her abdomen was then widely prepped and draped in the usual manner using ChloraPrep. An appropriate time-out was performed confirming the marked operative site and equipment including possible bowel resection equipment was available. Preemptive local was infiltrated in the skin and subcutaneous tissues and a oblique incision made over the hernia. Hemostasis was obtained with electrocautery. A large hernia sac with a diameter of approximately 10 cm was encountered and carefully opened taking care to avoid injuring the bowel contained. The bowel appeared pink with dusky spots but viable. The bowel had entero entero adhesions requiring careful, sharp dissection to straighten the bowel. At this point, it appeared viable, so it was carefully reduced. The hernia sac was excised and suture ligated with an 0 Polysorb. Next, a small polypropylene plug was placed in the right femoral canal and sutured with 2 anterior polypropylene sutures, a medial and a deep polypropylene suture, taking care to avoid the palpable femoral artery and adjacent femoral vein. The area was then irrigated copiously and inspected for hemostasis which was good. A layered closure using running 3-0 Polysorb on the deep tissues and deep dermis was performed followed by 4-0 Monocryl on the skin running subcuticular manner. The area was then washed and dried, Mastisol and Steri-Strips applied. Patient tolerated the procedure well and was sent extubated the recovery in stable condition. All sponge instrument counts were correct. I spoke with the patient's daughter, Yana, who also provided me her personal phone to update her [phone]. Explained to the patient's daughter that while the operation went well, the bowel was dusky and if the patient has significant leukocytosis or abdominal pain, a second-look laparoscopy may be required and 24 to 48 hours. She seemed understand the explanation and her questions seemed to be satisfactorily answered.
--- NOTE | 2022-12-31 20:12 | PC.NURSE ---
This nurse received report from previous nurse. Pt's hypertensive, sinus tachy and afibrile on rectal temp. Pt's labs were collected, IVF were running very slow therefore, second IV NS was not hang. Pt ABX were connected and no pain meds. pt left for surgery.
[2022-12-31 20:40] LABS: Appearance Urine Cloudy; Color Urine Dark Yellow; Glucose Urine UA Negative (Negative); Leukocyte Esterase Urine Small (1+) (Negative); Nitrite Urine Negative (Negative); Specific Gravity - Urine 1.025 (1.005-1.025); UMIC TRIGGER UACC YES; Urine Blood Large (3+) (Negative); Urine Ketones Trace mg/dL (Negative); Urine Protein 30 (1+) mg/dL (Neg-Trace)
--- NOTE | 2022-12-31 22:08 | PC.NURSE ---
pt awake confused attempted to scratch her noses easily redirected
[2022-12-31] MEDS: HYDROmorphone HCl 0.5 MG/0.5 ML SYRINGE 0.25 MG IVPUSH (22:30)
[2022-12-31] MEDS: Lactated Ringers 1,000 ML 100 ML IVCONT (23:02)
[2022-12-31 23:03] LABS: Bacteria Urine Trace (None Seen); Hyaline Casts Urine >20 /LPF (0-2); RBC Urine >20 /HPF (0-2); UACC Culture Trigger YES
[2022-12-31] MEDS: 0.9 % Sodium Chloride Flush 3 ML SYRINGE IVFLUSH (23:03)
[2023-01-01] MEDS: HYDROmorphone HCl 0.5 MG/0.5 ML SYRINGE 0.25 MG IVPUSH ×5 (02:21→19:43)
[2023-01-01] MEDS: Piperacillin Sodium/Tazobactam 3.375 GM in 0.9 % Sodium Chloride 50 ML IV ×4 (02:23→19:49)
[2023-01-01 03:12] VITALS: BP 107/60; PULSE 101; RESP 16; TEMP 36.9; O2SAT 93
[2023-01-01 07:07] VITALS: BP 124/60; PULSE 93; RESP 18; TEMP 36.1; O2SAT 93
[2023-01-01] MEDS: 0.9 % Sodium Chloride Flush 3 ML SYRINGE IVFLUSH ×2 (07:48→16:00)
[2023-01-01] MEDS: Lactated Ringers 1,000 ML 100 ML IVCONT ×2 (07:48→18:13)
--- NOTE | 2023-01-01 08:01 | PM.PNGS ---
Subjective Subjective Date of Service: 01/01/23 Interval history: The patient is resting and appears comfortable. Unfortunately, she has tried to remove her nasogastric tube several times. Physical Exam Vital Signs: Vital Signs: Last Vital Signs Temp 97 F 01/01/23 07:07 Pulse 93 01/01/23 07:07 Resp 18 01/01/23 07:07 BP 124/60 01/01/23 07:07 Pulse Ox 93 01/01/23 07:07 O2 Del Method 01/01/23 07:07 O2 Flow Rate 2 12/31/22 22:20 Oxygen Flow Rate 2 12/31/22 18:46 BMI result Body Mass Index 27.3 On exam she is comfortable She is in no respiratory distress Her abdomen is soft with no peritoneal irritation to percussion and no guarding in the right lower quadrant. She does have expected right inguinal incisional pain but her abdomen is not distended and behaving like bowel was present in the hernia. Objective Data Active Medications Fentanyl (Fentanyl Citrate/Pf 100 Mcg/2 Ml Vial) 50 mcg IVPUSH Q5M PRN; Protocol PRN Reason: Pain, Severe (Pain Scale 7-10) Hydromorphone HCl (Hydromorphone Hcl 0.5 Mg/0.5 Ml Syringe) 0.25 mg IVPUSH Q2H PRN; Protocol PRN Reason: Pain, Moderate (Pain Scale 4-6 Last Admin: 01/01/23 07:48 Dose: 0.25 mg Documented By: EZEKIEL Lactated Ringer's (Lr) 1,000 mls @ 100 mls/hr IVCONT .Q10H [facility] Last Admin: 01/01/23 07:48 Dose: 100 mls/hr Documented By: EZEKIEL Promethazine HCl 12.5 mg/ (Sodium Chloride) 50.5 mls @ 202 mls/hr IV ONCE PRN PRN Reason: Nausea and Vomiting Piperacillin Sod/Tazobactam (Sod 3.375 gm/ Sodium Chloride) 50 mls @ 100 mls/hr IV Q6H [facility] Last Admin: 01/01/23 07:49 Dose: 100 mls/hr Documented By: EZEKIEL Ondansetron HCl (Ondansetron Hcl 4 Mg/2 Ml Vial) 4 mg IVPUSH Q6H PRN PRN Reason: Nausea and Vomiting Sodium Chloride (0.9 % Sodium Chloride Flush 3 Ml Syringe) 3 ml IVFLUSH QSHIFT [facility] Last Admin: 01/01/23 07:48 Dose: 3 ml Documented By: EZEKIEL Labs 12/31/22 16:26 12/31/22 16:25 Labs: Laboratory Results - last 24 hr 12/31/22 12/31/22 12/31/22 16:25 16:25 16:25 MCV MCH MCHC RDW Plt Count MPV Immature Gran % (Auto) Neut % (Auto) Lymph % (Auto) [place] % (Auto) Eos % (Auto) Baso % (Auto) Lymph # (Auto) [place] # (Auto) Eos # (Auto) Baso # (Auto) Abs Immat Gran (auto) Absolute Neuts (auto) Absolute Nucleated RBC Nucleated RBC % (auto) Neutrophils % (Manual) Band Neutrophils % Lymphocytes % (Manual) Monocytes % (Manual) Abs Neuts (Manual) Lymphocytes # (Manual) Monocytes # (Manual) Platelet Estimate Plt Morphology Comment RBC Morphology PT INR Anion Gap 23 H Estim Creat Clear Calc 23.4 Estimated GFR 27 Random Glucose 167 H Lactic Acid Calcium 9.9 Magnesium 1.8 Total Bilirubin 0.9 Direct Bilirubin 0.4 AST 15 ALT 10 Alkaline Phosphatase 88 Ammonia 34 Troponin I High Sens 10.2 Total Protein 7.4 Albumin 4.4 Lipase 13 Urine Color Urine Appearance Urine pH Ur Specific [place] Urine Protein Urine Glucose (UA) Urine Ketones Urine Blood Urine Nitrite Ur Leukocyte Esterase Urine RBC Urine WBC Ur Squamous Epith Cells Urine Bacteria Hyaline Casts Influenza Type A (PCR) Influenza Type B (PCR) RSV RNA Qual (PCR) SARS-CoV-2 RNA (RT-PCR) 12/31/22 12/31/22 12/31/22 16:26 16:26 16:26 MCV 88.6 MCH 29.1 MCHC 32.8 RDW 12.5 Plt Count 458 H MPV 9.8 Immature Gran % (Auto) Cancelled Neut % (Auto) Cancelled Lymph % (Auto) Cancelled [place] % (Auto) Cancelled Eos % (Auto) Cancelled Baso % (Auto) Cancelled Lymph # (Auto) Cancelled [place] # (Auto) Cancelled Eos # (Auto) Cancelled Baso # (Auto) Cancelled Abs Immat Gran (auto) Cancelled Absolute Neuts (auto) Cancelled Absolute Nucleated RBC 0.000 Nucleated RBC % (auto) 0.0 Neutrophils % (Manual) 88 H Band Neutrophils % 0 L Lymphocytes % (Manual) 4 L Monocytes % (Manual) 8 Abs Neuts (Manual) 16.4 H Lymphocytes # (Manual) 0.7 L Monocytes # (Manual) 1.5 H Platelet Estimate NORMAL Plt Morphology Comment NORMAL RBC Morphology NORMAL PT 12.1 INR 1.1 Anion Gap Estim Creat Clear Calc Estimated GFR Random Glucose Lactic Acid Calcium Magnesium Total Bilirubin Direct Bilirubin AST ALT Alkaline Phosphatase Ammonia Troponin I High Sens Total Protein Albumin Lipase Urine Color Urine Appearance Urine pH Ur Specific [place] Urine Protein Urine Glucose (UA) Urine Ketones Urine Blood Urine Nitrite Ur Leukocyte Esterase Urine RBC Urine WBC Ur Squamous Epith Cells Urine Bacteria Hyaline Casts Influenza Type A (PCR) NEGATIVE Influenza Type B (PCR) NEGATIVE RSV RNA Qual (PCR) NEGATIVE SARS-CoV-2 RNA (RT-PCR) NEGATIVE 12/31/22 12/31/22 17:59 20:10 MCV MCH MCHC RDW Plt Count MPV Immature Gran % (Auto) Neut % (Auto) Lymph % (Auto) [place] % (Auto) Eos % (Auto) Baso % (Auto) Lymph # (Auto) [place] # (Auto) Eos # (Auto) Baso # (Auto) Abs Immat Gran (auto) Absolute Neuts (auto) Absolute Nucleated RBC Nucleated RBC % (auto) Neutrophils % (Manual) Band Neutrophils % Lymphocytes % (Manual) Monocytes % (Manual) Abs Neuts (Manual) Lymphocytes # (Manual) Monocytes # (Manual) Platelet Estimate Plt Morphology Comment RBC Morphology PT INR Anion Gap Estim Creat Clear Calc Estimated GFR Random Glucose Lactic Acid 1.1 Calcium Magnesium Total Bilirubin Direct Bilirubin AST ALT Alkaline Phosphatase Ammonia Troponin I High Sens Total Protein Albumin Lipase Urine Color Dark Yellow Urine Appearance Cloudy Urine pH 5.0 Ur Specific [place] 1.025 Urine Protein 30 (1+) H Urine Glucose (UA) Negative Urine Ketones Trace Urine Blood Large (3+) H Urine Nitrite Negative Ur Leukocyte Esterase Small (1+) H Urine RBC >20 H Urine WBC 6-10 H Ur Squamous Epith Cells 11-20 Urine Bacteria Trace Hyaline Casts >20 Influenza Type A (PCR) Influenza Type B (PCR) RSV RNA Qual (PCR) SARS-CoV-2 RNA (RT-PCR) 01/01/23 morning labs wbc trending down to 12.5 Lytes being followed Microbiology Microbiology Results: Microbiology 12/31/22 22:00 Gram Stain - Final Abdomen - Wound Procedures Date of Service Date of Service: 01/01/23 Progress Note: A&P Assessment and plan (1) Incarcerated hernia: Status: Acute (2) Dementia: Status: Acute (3) HTN (hypertension): Status: Acute (4) DENISE (acute kidney injury): Status: Acute (5) Femoral hernia of right side with obstruction: Status: Acute Plan Expected ileus given the degree of irritation to the incarcerated small bowel in the right femoral hernia. Continue bowel rest, nasogastric tube DC Ye Trend labs. Await bowel function. I called the patient's daughter, Yana at [phone] to update her that we are continuing the nasogastric tube in awaiting for bowel function. The patient's exam today with a soft abdomen and no peritoneal sign is encouraging. If the patient's exam changes and she becomes bloated, may need to consider diagnostic laparoscopy. Time Spent With Patient Time: Total time managing care of this patient today ____ minutes. Quality Stroke Does the patient have a stroke diagnosis?: No VTE Prior VTE?: No VTE Risk Level:: Surgical - moderate VTE Device Contraindication: N/A - Device Ordered VTE Drug Contraindication: Treatment Not Indicated
[2023-01-01 08:14] LABS: MANUAL DIFF FLAG NO
[2023-01-01 08:20] LABS: Basophils Percent Auto 0.2 % (0-2); Eosinophils Absolute Auto 0.2 X10*3/uL (0.0-0.4); Eosinophils Percent Auto 1.4 % (0-4); Hematocrit 34.7 % (37.0-47.0); Hemoglobin 11.3 g/dl (12.0-16.0); Imm Gran Abs Auto 0.04 X10*3/uL (0.00-0.03); Imm Gran Pct Auto 0.3 % (0.0-0.4); Lymphocytes Absolute Auto 0.5 X10*3/uL (1.2-4.9); Mean Corpuscular HGB Conc 32.6 g/dl (31.0-35.0); Mean Corpuscular Hemoglobin 29.6 pg (27.0-33.0); Mean Corpuscular Volume 90.8 fL (80.0-98.0); Mean Platelet Volume 9.9 fL (9.4-12.3); Monocytes Absolute Auto 0.9 X10*3/uL (0.1-1.2); Neutrophils Absolute Auto 10.9 x10*3/uL (2.0-8.3); Neutrophils Percent Auto 87.1 % (45-73); Platelet Count 330 X10*3/uL (160-400); Red Blood Count 3.82 X10*6/uL (4.20-5.50); Red Cell Distribution Width 12.7 % (11.0-16.0); White Blood Count 12.5 X10*3/uL (4.8-10.8)
[2023-01-01 08:36] LABS: Anion Gap 14 (12-20); Carbon Dioxide 18 mmol/L (22-29); Chloride 112 mmol/L (96-108); Glucose Random 139 mg/dL (60-115); Potassium 3.5 mmol/L (3.3-5.1); Sodium 140 mmol/L (135-145)
[2023-01-01 08:46] LABS: Blood Urea Nitrogen 25 mg/dL (9-16); Creatinine Clr Calc Pharmacy 60.4; Estimated Glomerular Filt Rate > 60
--- NOTE | 2023-01-01 09:27 | HO.POSTANES ---
Post Anesthesia Evaluation Post Anesthesia Evaluation Vital Signs: Vital Signs Temp Pulse Resp BP Pulse Ox O2 Del Method O2 Flow Rate 01/01/23 07:07 97 F 93 18 124/60 93 Room Air 01/01/23 03:12 98.5 F 101 H 16 107/60 93 Room Air 12/31/22 23:37 98.0 F 107 H 18 136/66 93 Room Air 12/31/22 22:30 18 12/31/22 22:30 98 F 100 18 144/81 H 99 Room Air 12/31/22 22:40 98 F 98 19 139/76 99 12/31/22 22:35 98 F 99 18 130/79 99 Shovel Mask 12/31/22 22:20 98 F 104 H 18 132/67 99 Shovel Mask 2 12/31/22 22:05 98 F 102 H 18 143/77 H 99 Shovel Mask 2 12/31/22 22:00 98 F 100 18 139/87 99 Shovel Mask 2 12/31/22 21:55 98 F 100 18 141/79 H 99 2 12/31/22 21:50 98.6 F 104 H 17 140/70 H 100 Shovel Mask 2 12/31/22 21:45 98.6 F 112 H 18 147/67 H 100 Shovel Mask 6 Anesthesia: General Mental Status: Awake Pain Control: Satisfactory Nausea/Vomiting: None Hydration: Adequate Anesthesia-Related Issues: No Anes. Related Issues
--- NOTE | 2023-01-01 09:34 | P.CONHOSP_ITS ---
History of Present Illness Data of Consult Service Date: 01/01/23 Requesting physician: Ed Staley Primary Care Provider: Carol Prescott MD [facility] Reason for consult: medical management 72 year old female with history of hypertension, unspecified dementia with mood disorder admitted to general surgery for management of incarcerated right inguinal hernia causing complete bowel obstruction s/p open right femoral hernia repair with lysis of adhesions and plug repair POD1 with hospitalist consult placed for medical management. Patient somnolent on exam. She is not the best historian secondary to dementia. History obtained from chart. Patient had not been able to pass urine or stool for 3 days with nausea, abdominal pain, and poor PO intake. She is now resting comfortably. In the ED, pt with DENISE with creat 1.83, BUN 41. DENISE now resolved. Leukocytosis 18.6 in the ED, trending down post op. She has an NG tube in place. Review of Systems Review of Systems: Yes Unobtainable due to mental condition and Unobtainable due to mental status [facility] Medical History (Updated 01/01/23 @ 10:39 by LUCAS Handy) Dementia with mood disturbance HTN (hypertension) Social History Household Members: Unknown / Unable to assess Housing: Unknown / Unable to assess Unable to assess alcohol history related to: Unknown Patient Tobacco Use Status: Tobacco use Unknown Use of substances other than those prescribed or required for medical reasons: Unknown Currently Displaying Signs/Symptoms of Drug Intoxication Withdrawal: No Advance Directives: No Advance Directives Information Provided: No Do you have thoughts of harming others: None Do you have a plan to hurt others: No Plan Patient : No Meds Allergies Allergy/AdvReac Type Severity Reaction Status Date / Time No Known Allergies Allergy Verified 12/31/22 15:13 Active Medications: Current Medications Fentanyl (Fentanyl Citrate/Pf 100 Mcg/2 Ml Vial) 50 mcg IVPUSH Q5M PRN; Protocol PRN Reason: Pain, Severe (Pain Scale 7-10) Hydromorphone HCl (Hydromorphone Hcl 0.5 Mg/0.5 Ml Syringe) 0.25 mg IVPUSH Q2H PRN; Protocol PRN Reason: Pain, Moderate (Pain Scale 4-6 Last Admin: 01/01/23 07:48 Dose: 0.25 mg Lactated Ringer's (Lr) 1,000 mls @ 100 mls/hr IVCONT .Q10H [facility] Last Admin: 01/01/23 07:48 Dose: 100 mls/hr Promethazine HCl 12.5 mg/ (Sodium Chloride) 50.5 mls @ 202 mls/hr IV ONCE PRN PRN Reason: Nausea and Vomiting Piperacillin Sod/Tazobactam (Sod 3.375 gm/ Sodium Chloride) 50 mls @ 100 mls/hr IV Q6H [facility] Last Infusion: 01/01/23 08:48 Dose: Infused Ondansetron HCl (Ondansetron Hcl 4 Mg/2 Ml Vial) 4 mg IVPUSH Q6H PRN PRN Reason: Nausea and Vomiting Sodium Chloride (0.9 % Sodium Chloride Flush 3 Ml Syringe) 3 ml IVFLUSH QSHIFT [facility] Last Admin: 01/01/23 07:48 Dose: 3 ml Home Medications Medication Instructions Recorded Confirmed Last Taken Type amlodipine 10 mg tablet 1 tab PO DAILY 12/31/22 12/31/22 Unknown History cholecalciferol (vitamin D3) 50 1 tab PO BEDTIME 12/31/22 12/31/22 Unknown History mcg (2,000 unit) tablet escitalopram oxalate 10 mg tablet 1 tab PO DAILY 12/31/22 12/31/22 Unknown History losartan 25 mg tablet 1 tab PO BEDTIME 12/31/22 12/31/22 Unknown History memantine 5 mg tablet 1 tab PO BEDTIME 12/31/22 12/31/22 Unknown History simethicone 180 mg capsule 1 cap PO BID 12/31/22 12/31/22 Unknown History Physical Exam Vital Signs and Narrative: Vital Signs: Last Vital Signs Temp 97 F 01/01/23 07:07 Pulse 93 01/01/23 07:07 Resp 18 01/01/23 07:07 BP 124/60 01/01/23 07:07 Pulse Ox 93 01/01/23 07:07 O2 Del Method 01/01/23 07:07 O2 Flow Rate 2 12/31/22 22:20 Oxygen Flow Rate 2 12/31/22 18:46 BMI result Body Mass Index 27.3 Constitutional - Somnolent but arousable, No apparent distress Eyes - PERRLA, EOMI Cardiovascular - S1S2, RRR, No edema Respiratory - Normal lung expansion, Normal respiratory effort, No respiratory distress, CTA bilaterally Gastrointestinal - ND; +BS; No rebound or guarding Extremities - no calf tenderness bilaterally, no swelling Skin - Warm/Dry Neurological - Somnolent Psychological - Appropriate affect Results Labs 01/01/23 08:08 01/01/23 08:08 Labs: Laboratory Results - last 24 hr 12/31/22 12/31/22 12/31/22 16:25 16:25 16:25 MCV MCH MCHC RDW Plt Count MPV Immature Gran % (Auto) Neut % (Auto) Lymph % (Auto) [place] % (Auto) Eos % (Auto) Baso % (Auto) Lymph # (Auto) [place] # (Auto) Eos # (Auto) Baso # (Auto) Abs Immat Gran (auto) Absolute Neuts (auto) Absolute Nucleated RBC Nucleated RBC % (auto) Neutrophils % (Manual) Band Neutrophils % Lymphocytes % (Manual) Monocytes % (Manual) Abs Neuts (Manual) Lymphocytes # (Manual) Monocytes # (Manual) Platelet Estimate Plt Morphology Comment RBC Morphology PT INR Anion Gap 23 H Estim Creat Clear Calc 23.4 Estimated GFR 27 Random Glucose 167 H Lactic Acid Calcium 9.9 Magnesium 1.8 Total Bilirubin 0.9 Direct Bilirubin 0.4 AST 15 ALT 10 Alkaline Phosphatase 88 Ammonia 34 Troponin I High Sens 10.2 Total Protein 7.4 Albumin 4.4 Lipase 13 Urine Color Urine Appearance Urine pH Ur Specific [place] Urine Protein Urine Glucose (UA) Urine Ketones Urine Blood Urine Nitrite Ur Leukocyte Esterase Urine RBC Urine WBC Ur Squamous Epith Cells Urine Bacteria Hyaline Casts Influenza Type A (PCR) Influenza Type B (PCR) RSV RNA Qual (PCR) SARS-CoV-2 RNA (RT-PCR) 12/31/22 12/31/22 12/31/22 16:26 16:26 16:26 MCV 88.6 MCH 29.1 MCHC 32.8 RDW 12.5 Plt Count 458 H MPV 9.8 Immature Gran % (Auto) Cancelled Neut % (Auto) Cancelled Lymph % (Auto) Cancelled [place] % (Auto) Cancelled Eos % (Auto) Cancelled Baso % (Auto) Cancelled Lymph # (Auto) Cancelled [place] # (Auto) Cancelled Eos # (Auto) Cancelled Baso # (Auto) Cancelled Abs Immat Gran (auto) Cancelled Absolute Neuts (auto) Cancelled Absolute Nucleated RBC 0.000 Nucleated RBC % (auto) 0.0 Neutrophils % (Manual) 88 H Band Neutrophils % 0 L Lymphocytes % (Manual) 4 L Monocytes % (Manual) 8 Abs Neuts (Manual) 16.4 H Lymphocytes # (Manual) 0.7 L Monocytes # (Manual) 1.5 H Platelet Estimate NORMAL Plt Morphology Comment NORMAL RBC Morphology NORMAL PT 12.1 INR 1.1 Anion Gap Estim Creat Clear Calc Estimated GFR Random Glucose Lactic Acid Calcium Magnesium Total Bilirubin Direct Bilirubin AST ALT Alkaline Phosphatase Ammonia Troponin I High Sens Total Protein Albumin Lipase Urine Color Urine Appearance Urine pH Ur Specific [place] Urine Protein Urine Glucose (UA) Urine Ketones Urine Blood Urine Nitrite Ur Leukocyte Esterase Urine RBC Urine WBC Ur Squamous Epith Cells Urine Bacteria Hyaline Casts Influenza Type A (PCR) NEGATIVE Influenza Type B (PCR) NEGATIVE RSV RNA Qual (PCR) NEGATIVE SARS-CoV-2 RNA (RT-PCR) NEGATIVE 12/31/22 12/31/22 01/01/23 17:59 20:10 08:08 MCV 90.8 MCH 29.6 MCHC 32.6 RDW 12.7 Plt Count 330 D MPV 9.9 Immature Gran % (Auto) 0.3 Neut % (Auto) 87.1 H Lymph % (Auto) 4.0 L [place] % (Auto) 7.0 Eos % (Auto) 1.4 Baso % (Auto) 0.2 Lymph # (Auto) 0.5 L [place] # (Auto) 0.9 Eos # (Auto) 0.2 Baso # (Auto) 0.0 Abs Immat Gran (auto) 0.04 H Absolute Neuts (auto) 10.9 H Absolute Nucleated RBC 0.000 Nucleated RBC % (auto) 0.0 Neutrophils % (Manual) Band Neutrophils % Lymphocytes % (Manual) Monocytes % (Manual) Abs Neuts (Manual) Lymphocytes # (Manual) Monocytes # (Manual) Platelet Estimate Plt Morphology Comment RBC Morphology PT INR Anion Gap Estim Creat Clear Calc Estimated GFR Random Glucose Lactic Acid 1.1 Calcium Magnesium Total Bilirubin Direct Bilirubin AST ALT Alkaline Phosphatase Ammonia Troponin I High Sens Total Protein Albumin Lipase Urine Color Dark Yellow Urine Appearance Cloudy Urine pH 5.0 Ur Specific [place] 1.025 Urine Protein 30 (1+) H Urine Glucose (UA) Negative Urine Ketones Trace Urine Blood Large (3+) H Urine Nitrite Negative Ur Leukocyte Esterase Small (1+) H Urine RBC >20 H Urine WBC 6-10 H Ur Squamous Epith Cells 11-20 Urine Bacteria Trace Hyaline Casts >20 Influenza Type A (PCR) Influenza Type B (PCR) RSV RNA Qual (PCR) SARS-CoV-2 RNA (RT-PCR) 01/01/23 08:08 MCV MCH MCHC RDW Plt Count MPV Immature Gran % (Auto) Neut % (Auto) Lymph % (Auto) [place] % (Auto) Eos % (Auto) Baso % (Auto) Lymph # (Auto) [place] # (Auto) Eos # (Auto) Baso # (Auto) Abs Immat Gran (auto) Absolute Neuts (auto) Absolute Nucleated RBC Nucleated RBC % (auto) Neutrophils % (Manual) Band Neutrophils % Lymphocytes % (Manual) Monocytes % (Manual) Abs Neuts (Manual) Lymphocytes # (Manual) Monocytes # (Manual) Platelet Estimate Plt Morphology Comment RBC Morphology PT INR Anion Gap 14 Estim Creat Clear Calc 60.4 Estimated GFR > 60 Random Glucose 139 H Lactic Acid Calcium 8.0 L D Magnesium Total Bilirubin Direct Bilirubin AST ALT Alkaline Phosphatase Ammonia Troponin I High Sens Total Protein Albumin Lipase Urine Color Urine Appearance Urine pH Ur Specific [place] Urine Protein Urine Glucose (UA) Urine Ketones Urine Blood Urine Nitrite Ur Leukocyte Esterase Urine RBC Urine WBC Ur Squamous Epith Cells Urine Bacteria Hyaline Casts Influenza Type A (PCR) Influenza Type B (PCR) RSV RNA Qual (PCR) SARS-CoV-2 RNA (RT-PCR) Imaging Radiologist's Impressions: Impressions Abdomen/Pelvis CT 12/31/22 15:49 IMPRESSION: * High-grade small bowel obstruction, transition zone within a right inguinal hernia containing loops of small bowel, the neck of which is about 3 cm. [address] is no CT evidence of bowel perforation or free air at this time. * Urgent surgical evaluation warranted. * Tiny gallstone. Cholelithiasis. (Referring physician staff is being called, to be alerted of the above findings and recommendations.) TC Chest X-Ray 12/31/22 15:52 IMPRESSION: Unremarkable examination. Assessment and Plan (1) Femoral hernia of right side with obstruction: Status: Acute (2) DENISE (acute kidney injury): Status: Acute Plan 72 year old female with history of hypertension, unspecified dementia with mood disorder admitted to general surgery for management of incarcerated right inguinal hernia causing complete bowel obstruction s/p open right femoral hernia repair with lysis of adhesions and plug repair POD1 with hospitalist consult placed for medical management. #incarcerated right inguinal hernia causing complete bowel obstruction s/p open right femoral hernia repair with lysis of adhesions and plug repair POD1 -Plan per general surgery. Pain management per general surgery -NG Tube in place. Diet advancement per gen surgery #Acute kidney injury- resolved with IVF -likely secondary to poor PO intake -Continue IVF per gen surgery -Follow BMP #HTN- reasonably controlled -Continue amlodipine tomorrow am. Hold losartan, resume as needed for hypertension #Unspecified dementia with mood disorder -continue memantine and lexapro Dispo and DVT prophylaxis per gen surgery Thank you for this consult, will continue to follow. Time Spent With Patient Time: Total time managing care of this patient today ____ minutes.
--- NOTE | 2023-01-01 13:23 | MHC.CM.PN ---
met with pt whom is independent cm intervention is not indicated dc plan home no servceis,pt is mekhi vax x 2 ,has own ride home
--- NOTE | 2023-01-01 13:26 | MHC.CM.PN ---
pt lives with her dgter pt has no previous servceis she is covid vax x 2 has own ride home
[2023-01-01 14:54] VITALS: BP 142/74; PULSE 104; RESP 18; TEMP 35.9
[2023-01-01] MEDS: Memantine HCl 5 MG TABLET PO (19:50)
[2023-01-01 23:42] VITALS: BP 157/73; PULSE 95; RESP 16; TEMP 36.8; O2SAT 96
[2023-01-02] MEDS: Piperacillin Sodium/Tazobactam 3.375 GM in 0.9 % Sodium Chloride 50 ML IV ×3 (02:45→15:33)
[2023-01-02] MEDS: Lactated Ringers 1,000 ML 100 ML IVCONT ×2 (02:45→16:05)
[2023-01-02] MEDS: HYDROmorphone HCl 0.5 MG/0.5 ML SYRINGE 0.25 MG IVPUSH ×2 (03:20→08:53)
[2023-01-02 03:39] VITALS: BP 130/63; PULSE 88; RESP 16; TEMP 36.6; O2SAT 93
[2023-01-02 05:29] LABS: MANUAL DIFF FLAG NO
[2023-01-02 05:33] LABS: Basophils Percent Auto 0.2 % (0-2); Eosinophils Percent Auto 0.1 % (0-4); Hematocrit 33.5 % (37.0-47.0); Hemoglobin 10.8 g/dl (12.0-16.0); Imm Gran Abs Auto 0.12 X10*3/uL (0.00-0.03); Imm Gran Pct Auto 1.1 % (0.0-0.4); Lymphocytes Percent Auto 9.1 % (20-40); Mean Corpuscular HGB Conc 32.2 g/dl (31.0-35.0); Mean Corpuscular Volume 90.1 fL (80.0-98.0); Mean Platelet Volume 9.7 fL (9.4-12.3); Monocytes Absolute Auto 1.3 X10*3/uL (0.1-1.2); Monocytes Percent Auto 12.2 % (2-11); Neutrophils Absolute Auto 8.2 x10*3/uL (2.0-8.3); Neutrophils Percent Auto 77.3 % (45-73); Platelet Count 291 X10*3/uL (160-400); Red Blood Count 3.72 X10*6/uL (4.20-5.50); Red Cell Distribution Width 12.8 % (11.0-16.0); White Blood Count 10.6 X10*3/uL (4.8-10.8)
[2023-01-02 06:03] LABS: Anion Gap 17 (12-20); Blood Urea Nitrogen 12 mg/dL (9-16); Carbon Dioxide 17 mmol/L (22-29); Chloride 114 mmol/L (96-108); Creatinine Clr Calc Pharmacy 85.9; Estimated Glomerular Filt Rate > 60; Glucose Random 95 mg/dL (60-115); Potassium 3.2 mmol/L (3.3-5.1); Sodium 145 mmol/L (135-145)
[2023-01-02 07:33] VITALS: BP 140/66; PULSE 86; RESP 18; TEMP 36.7; O2SAT 96
--- NOTE | 2023-01-02 07:58 | PM.PNGS ---
Subjective Subjective Date of Service: 01/02/23 Patient reports: no new complaints, feels better and bowel movement Interval history: Patient is doing well. She has had a couple bowel movements yesterday and has less pain. However, her nasogastric tube is put out 1250 cc. Physical Exam Vital Signs: Vital Signs: Last Vital Signs Temp 98.0 F 01/02/23 07:33 Pulse 86 01/02/23 07:33 Resp 18 01/02/23 07:33 BP 140/66 H 01/02/23 07:33 Pulse Ox 96 01/02/23 07:33 O2 Del Method 01/02/23 07:33 O2 Flow Rate 2 12/31/22 22:20 Oxygen Flow Rate 2 12/31/22 18:46 BMI result Body Mass Index 27.3 She is nontoxic and communicative Her abdomen is soft with no peritoneal sign Right inguinal dressing is intact Objective Data Active Medications Amlodipine Besylate (Amlodipine Besylate 10 Mg Tablet) 10 mg PO DAILY [facility]; Protocol Escitalopram Oxalate (Escitalopram Oxalate 10 Mg Tablet) 10 mg PO DAILY [facility] Fentanyl (Fentanyl Citrate/Pf 100 Mcg/2 Ml Vial) 50 mcg IVPUSH Q5M PRN; Protocol PRN Reason: Pain, Severe (Pain Scale 7-10) Guaifenesin/Dextromethorphan (Guaifenesin Dm 100/10/5 Ml 5 Ml Syrup) 5 ml PO Q4H PRN PRN Reason: Cough Hydromorphone HCl (Hydromorphone Hcl 0.5 Mg/0.5 Ml Syringe) 0.25 mg IVPUSH Q2H PRN; Protocol PRN Reason: Pain, Moderate (Pain Scale 4-6 Last Admin: 01/02/23 03:20 Dose: 0.25 mg Documented By: CHIDI Lactated Ringer's (Lr) 1,000 mls @ 100 mls/hr IVCONT .Q10H [facility] Last Admin: 01/02/23 02:45 Dose: 100 mls/hr Documented By: CHIDI Promethazine HCl 12.5 mg/ (Sodium Chloride) 50.5 mls @ 202 mls/hr IV ONCE PRN PRN Reason: Nausea and Vomiting Piperacillin Sod/Tazobactam (Sod 3.375 gm/ Sodium Chloride) 50 mls @ 100 mls/hr IV Q6H [facility] Last Infusion: 01/02/23 03:20 Dose: 0 mls/hr Documented By: CHIDI Memantine (Memantine Hcl 5 Mg Tablet) 5 mg PO BEDTIME [facility] Last Admin: 01/01/23 19:50 Dose: 5 mg Documented By: CHIDI Ondansetron HCl (Ondansetron Hcl 4 Mg/2 Ml Vial) 4 mg IVPUSH Q6H PRN PRN Reason: Nausea and Vomiting Sodium Chloride (0.9 % Sodium Chloride Flush 3 Ml Syringe) 3 ml IVFLUSH QSHIFT [facility] Last Admin: 01/01/23 20:00 Dose: Not Given Documented By: CHIDI Non-Admin Reason: IV Running Vitamin D (Cholecalciferol (Vitamin D3) 25 Mcg Tablet) 50 mcg PO BEDTIME [facility] Last Admin: 01/01/23 20:00 Dose: Not Given Documented By: CHIDI Non-Admin Reason: Patient Refused Labs 01/02/23 05:10 01/02/23 05:10 Labs: Laboratory Results - last 24 hr 01/01/23 01/01/23 01/02/23 08:08 08:08 05:10 MCV 90.8 90.1 MCH 29.6 29.0 MCHC 32.6 32.2 RDW 12.7 12.8 Plt Count 330 D 291 MPV 9.9 9.7 Immature Gran % (Auto) 0.3 1.1 H Neut % (Auto) 87.1 H 77.3 H Lymph % (Auto) 4.0 L 9.1 L Jack % (Auto) 7.0 12.2 H Eos % (Auto) 1.4 0.1 Baso % (Auto) 0.2 0.2 Lymph # (Auto) 0.5 L 1.0 L Jack # (Auto) 0.9 1.3 H Eos # (Auto) 0.2 0.0 Baso # (Auto) 0.0 0.0 Abs Immat Gran (auto) 0.04 H 0.12 H Absolute Neuts (auto) 10.9 H 8.2 Absolute Nucleated RBC 0.000 0.000 Nucleated RBC % (auto) 0.0 0.0 Anion Gap 14 Estim Creat Clear Calc 60.4 Estimated GFR > 60 Random Glucose 139 H Calcium 8.0 L D 01/02/23 05:10 MCV MCH MCHC RDW Plt Count MPV Immature Gran % (Auto) Neut % (Auto) Lymph % (Auto) Jack % (Auto) Eos % (Auto) Baso % (Auto) Lymph # (Auto) Jack # (Auto) Eos # (Auto) Baso # (Auto) Abs Immat Gran (auto) Absolute Neuts (auto) Absolute Nucleated RBC Nucleated RBC % (auto) Anion Gap 17 Estim Creat Clear Calc 85.9 Estimated GFR > 60 Random Glucose 95 Calcium 8.0 L Microbiology Microbiology Results: Microbiology 12/31/22 19:01 Blood Culture - Preliminary Blood - Venous No growth after 24 hours. 12/31/22 19:01 Blood Culture - Preliminary Blood - Venous No growth after 24 hours. 12/31/22 22:00 Gram Stain - Final Abdomen - Wound Routine Culture - Preliminary No growth to date. Procedures Date of Service Date of Service: 01/02/23 Progress Note: A&P Assessment and plan (1) Femoral hernia of right side with obstruction: Status: Acute (2) DENISE (acute kidney injury): Status: Acute (3) Dementia: Status: Acute (4) HTN (hypertension): Status: Acute Plan The patient appears to be doing well and her falling white blood cell count is normalized suggestive of clinical progress. I have ordered that the nasogastric tube be clamped for 4 hours. If the patient becomes bloated or nauseated, will be restarted. However, if it is tolerated, the NG will be started for 1 hour, residual recorded and if the residuals under 300 cc, the NG can be removed in clear liquids can be started. Will reassess the patient this afternoon Time Spent With Patient Time: Total time managing care of this patient today ____ minutes. Quality Stroke Does the patient have a stroke diagnosis?: No VTE Prior VTE?: No VTE Risk Level:: Surgical - moderate VTE Device Contraindication: N/A - Device Ordered VTE Drug Contraindication: Treatment Not Indicated
[2023-01-02] MEDS: amLODIPine Besylate 10 MG TABLET PO (08:52)
[2023-01-02] MEDS: Escitalopram Oxalate 10 MG TABLET PO (08:52)
[2023-01-02] MEDS: Potassium Chloride/H20 10 MEQ/100 ML PIGGYBACK 100 MEQ IV (09:42)
[2023-01-02 11:26] VITALS: BP 122/64; PULSE 84; RESP 18; TEMP 36.7; O2SAT 95
--- NOTE | 2023-01-02 11:55 | P.PNIM_ITS ---
Subjective Subjective Date of Service: 01/02/23 Interval History: This history was taken in German from the patient. Pt hungry. Denies abd pain. Review of Systems Review of Systems: Yes all other systems are reviewed and are negative Physical Exam Vital Signs: Vital Signs: Last Vital Signs Temp 98.0 F 01/02/23 11:26 Pulse 84 01/02/23 11:26 Resp 18 01/02/23 11:26 BP 122/64 01/02/23 11:26 Pulse Ox 95 01/02/23 11:26 O2 Del Method 01/02/23 11:26 O2 Flow Rate 2 12/31/22 22:20 Oxygen Flow Rate 2 12/31/22 18:46 BMI result Body Mass Index 27.3 Const: Other: Gen: in no acute distress HEENT: sclera anicteric, moist mucus membranes Neck: supple Lungs: clear to auscultation bilaterally Heart: regular rate and rhythm, no murmurs Abd: soft, non-tender, non-distended, NG tube in place, inguinal incision C/D/I Ext: no edema Skin: warm/well-perfused Neuro: alert and oriented to self Psych: appropriate affect Objective Data Active Medications Amlodipine Besylate (Amlodipine Besylate 10 Mg Tablet) 10 mg PO DAILY [facility]; Protocol Last Admin: 01/02/23 08:52 Dose: 10 mg Documented By: EZEKIEL Escitalopram Oxalate (Escitalopram Oxalate 10 Mg Tablet) 10 mg PO DAILY [facility] Last Admin: 01/02/23 08:52 Dose: 10 mg Documented By: EZEKIEL Fentanyl (Fentanyl Citrate/Pf 100 Mcg/2 Ml Vial) 50 mcg IVPUSH Q5M PRN; Protocol PRN Reason: Pain, Severe (Pain Scale 7-10) Guaifenesin/Dextromethorphan (Guaifenesin Dm 100/10/5 Ml 5 Ml Syrup) 5 ml PO Q4H PRN PRN Reason: Cough Hydromorphone HCl (Hydromorphone Hcl 0.5 Mg/0.5 Ml Syringe) 0.25 mg IVPUSH Q2H PRN; Protocol PRN Reason: Pain, Moderate (Pain Scale 4-6 Last Admin: 01/02/23 08:53 Dose: 0.25 mg Documented By: EZEKIEL Lactated Ringer's (Lr) 1,000 mls @ 100 mls/hr IVCONT .Q10H [facility] Last Admin: 01/02/23 02:45 Dose: 100 mls/hr Documented By: CHIDI Promethazine HCl 12.5 mg/ (Sodium Chloride) 50.5 mls @ 202 mls/hr IV ONCE PRN PRN Reason: Nausea and Vomiting Piperacillin Sod/Tazobactam (Sod 3.375 gm/ Sodium Chloride) 50 mls @ 100 mls/hr IV Q6H [facility] Last Infusion: 01/02/23 09:39 Dose: 0 mls/hr Documented By: EZEKIEL Losartan Potassium (Losartan Potassium 25 Mg Tablet) 25 mg PO BEDTIME [facility]; Protocol Memantine (Memantine Hcl 5 Mg Tablet) 5 mg PO BEDTIME [facility] Last Admin: 01/01/23 19:50 Dose: 5 mg Documented By: CHIDI Ondansetron HCl (Ondansetron Hcl 4 Mg/2 Ml Vial) 4 mg IVPUSH Q6H PRN PRN Reason: Nausea and Vomiting Sodium Chloride (0.9 % Sodium Chloride Flush 3 Ml Syringe) 3 ml IVFLUSH QSHIFT [facility] Last Admin: 01/02/23 09:42 Dose: Not Given Documented By: EZEKIEL Non-Admin Reason: IV Running Vitamin D (Cholecalciferol (Vitamin D3) 25 Mcg Tablet) 50 mcg PO BEDTIME [facility] Last Admin: 01/01/23 20:00 Dose: Not Given Documented By: CHIDI Non-Admin Reason: Patient Refused Labs 01/02/23 05:10 01/02/23 05:10 Labs: Laboratory Results - last 24 hr 01/02/23 01/02/23 05:10 05:10 MCV 90.1 MCH 29.0 MCHC 32.2 RDW 12.8 Plt Count 291 MPV 9.7 Immature Gran % (Auto) 1.1 H Neut % (Auto) 77.3 H Lymph % (Auto) 9.1 L [place] % (Auto) 12.2 H Eos % (Auto) 0.1 Baso % (Auto) 0.2 Lymph # (Auto) 1.0 L [place] # (Auto) 1.3 H Eos # (Auto) 0.0 Baso # (Auto) 0.0 Abs Immat Gran (auto) 0.12 H Absolute Neuts (auto) 8.2 Absolute Nucleated RBC 0.000 Nucleated RBC % (auto) 0.0 Anion Gap 17 Estim Creat Clear Calc 85.9 Estimated GFR > 60 Random Glucose 95 Calcium 8.0 L Microbiology Microbiology Results: Microbiology 12/31/22 00:00 Urine Culture - Preliminary Urine clean catch - Clean Catch Midstream Gram negative tracey 12/31/22 22:00 Gram Stain - Final Abdomen - Wound Routine Culture - Preliminary No growth to date. 12/31/22 19:01 Blood Culture - Preliminary Blood - Venous No growth after 24 hours. 12/31/22 19:01 Blood Culture - Preliminary Blood - Venous No growth after 24 hours. Assessment and Plan (1) DENISE (acute kidney injury): Status: Acute (2) HTN (hypertension): Status: Acute Plan hospital d#3 72 year old female with history of hypertension, unspecified dementia with mood disorder admitted to general surgery for management of incarcerated right inguinal hernia causing complete bowel obstruction s/p open right femoral hernia repair with lysis of adhesions and plug repair 2/5 hospitalist consult placed for medical management. #incarcerated right inguinal hernia causing complete bowel obstruction s/p open right femoral hernia repair with lysis of adhesions and plug repair POD#2 - NG tube/diet as per Gen Surg # prerenal DENISE - resolved with IV fluids # hypoK - replete, recheck K in AM # HTN - continue amlodipine and resume losartan # dementia with mood disorder - continue memantine + escitalopram # VTE ppx: LMWH Time Spent With Patient Time: Total time managing care of this patient today __35__ minutes. Quality Stroke Does the patient have a stroke diagnosis?: No VTE Prior VTE?: No VTE Risk Level:: Surgical - moderate VTE Device Contraindication: N/A - Device Ordered VTE Drug Contraindication: Treatment Not Indicated
--- NOTE | 2023-01-02 14:23 | PC.NURSE ---
Ephraim removed at 1330. DTV # 1 at 1930. NG removed at [address] Rebeka pavon.
[2023-01-02 15:28] VITALS: BP 121/75; PULSE 100; RESP 19; TEMP 36.8; O2SAT 97
[2023-01-02] MEDS: 0.9 % Sodium Chloride Flush 3 ML SYRINGE IVFLUSH (15:53)
[2023-01-02] MEDS: Lactated Ringers 1,000 ML 50 ML IVCONT (17:37)
[2023-01-02 19:00] VITALS: O2SAT 97
[2023-01-02 19:07] VITALS: BP 118/92; PULSE 82; RESP 17; TEMP 36.5; O2SAT 97
[2023-01-02] MEDS: Losartan Potassium 25 MG TABLET PO (20:25)
[2023-01-02] MEDS: Memantine HCl 5 MG TABLET PO (20:25)
[2023-01-02] MEDS: Cholecalciferol (Vitamin D3) 25 MCG TABLET 50 MCG PO (20:26)
[2023-01-03] VITALS: BP 164/76; PULSE 88; RESP 20; TEMP 36.5; O2SAT 96
[2023-01-03 04:00] VITALS: BP 135/75; PULSE 88; RESP 18; TEMP 36.1; O2SAT 95
[2023-01-03 07:03] LABS: Anion Gap 15 (12-20); Blood Urea Nitrogen 6 mg/dL (9-16); Carbon Dioxide 18 mmol/L (22-29); Chloride 111 mmol/L (96-108); Creatinine Clr Calc Pharmacy 99.8; Estimated Glomerular Filt Rate > 60; Glucose Random 90 mg/dL (60-115); Potassium 3.4 mmol/L (3.3-5.1); Sodium 141 mmol/L (135-145)
[2023-01-03 07:39] VITALS: BP 139/79; PULSE 87; RESP 24; TEMP 36.8; O2SAT 96
[2023-01-03] MEDS: amLODIPine Besylate 10 MG TABLET PO (08:26)
[2023-01-03] MEDS: Escitalopram Oxalate 10 MG TABLET PO (08:26)
[2023-01-03] MEDS: oxyCODONE HCl Immed Release 5 MG TABLET PO (09:31)
--- NOTE | 2023-01-03 11:03 | P.PNIM_ITS ---
Subjective Subjective Date of Service: 01/03/23 Interval History: This history was taken in Hebrew from the patient. NGT removed, tolerating diet BP controlled, K + SCr normal Review of Systems Review of Systems: Yes all other systems are reviewed and are negative Physical Exam Vital Signs: Vital Signs: Last Vital Signs Temp 98.2 F 01/03/23 07:39 Pulse 87 01/03/23 07:39 Resp 24 H 01/03/23 07:39 BP 139/79 01/03/23 07:39 Pulse Ox 96 01/03/23 07:39 O2 Del Method 01/03/23 07:39 O2 Flow Rate 2 12/31/22 22:20 Oxygen Flow Rate 2 12/31/22 18:46 BMI result Body Mass Index 27.3 Const: Other: Gen: in no acute distress HEENT: sclera anicteric, moist mucus membranes Neck: supple Lungs: clear to auscultation bilaterally Heart: regular rate and rhythm, no murmurs Abd: soft, non-tender, non-distended Ext: no edema Skin: warm/well-perfused Neuro: alert and oriented x3, no focal findings Psych: appropriate affect Objective Data Active Medications Acetaminophen (Acetaminophen 325 Mg Tablet) 650 mg PO Q6H PRN PRN Reason: Mildpain Amlodipine Besylate (Amlodipine Besylate 10 Mg Tablet) 10 mg PO DAILY [facility]; Protocol Last Admin: 01/03/23 08:26 Dose: 10 mg Documented By: EZEKIEL Cefuroxime Axetil (Cefuroxime Axetil 500 Mg Tablet) 500 mg PO Q12H [facility] Last Admin: 01/03/23 09:31 Dose: 500 mg Documented By: EZEKIEL Escitalopram Oxalate (Escitalopram Oxalate 10 Mg Tablet) 10 mg PO DAILY [facility] Last Admin: 01/03/23 08:26 Dose: 10 mg Documented By: EZEKIEL Fentanyl (Fentanyl Citrate/Pf 100 Mcg/2 Ml Vial) 50 mcg IVPUSH Q5M PRN; Protocol PRN Reason: Pain, Severe (Pain Scale 7-10) Guaifenesin/Dextromethorphan (Guaifenesin Dm 100/10/5 Ml 5 Ml Syrup) 5 ml PO Q4H PRN PRN Reason: Cough Hydromorphone HCl (Hydromorphone Hcl 0.5 Mg/0.5 Ml Syringe) 0.25 mg IVPUSH Q2H PRN; Protocol PRN Reason: Pain, Moderate (Pain Scale 4-6 Last Admin: 01/02/23 08:53 Dose: 0.25 mg Documented By: EZEKIEL Lactated Ringer's (Lr) 1,000 mls @ 50 mls/hr IVCONT .Q20H [facility] Last Admin: 01/02/23 17:37 Dose: 50 mls/hr Documented By: ELSI Promethazine HCl 12.5 mg/ (Sodium Chloride) 50.5 mls @ 202 mls/hr IV ONCE PRN PRN Reason: Nausea and Vomiting Losartan Potassium (Losartan Potassium 25 Mg Tablet) 25 mg PO BEDTIME [facility]; Protocol Last Admin: 01/02/23 20:25 Dose: 25 mg Documented By: ELSI Memantine (Memantine Hcl 5 Mg Tablet) 5 mg PO BEDTIME [facility] Last Admin: 01/02/23 20:25 Dose: 5 mg Documented By: ELSI Ondansetron HCl (Ondansetron Hcl 4 Mg/2 Ml Vial) 4 mg IVPUSH Q6H PRN PRN Reason: Nausea and Vomiting Oxycodone HCl (Oxycodone Hcl Immed Release 5 Mg Tablet) 5 mg PO Q6H PRN PRN Reason: mnodeate pain Last Admin: 01/03/23 09:31 Dose: 5 mg Documented By: EZEKIEL Sodium Chloride (0.9 % Sodium Chloride Flush 3 Ml Syringe) [facility] Last Admin: 01/03/23 08:26 Dose: Not Given Documented By: EZEKIEL Non-Admin Reason: IV Running Vitamin D (Cholecalciferol (Vitamin D3) 25 Mcg Tablet) 50 mcg PO BEDTIME [facility] Last Admin: 01/02/23 20:26 Dose: 50 mcg Documented By: ELSI Labs 01/02/23 05:10 01/03/23 05:24 Labs: Laboratory Results - last 24 hr 01/03/23 05:24 Anion Gap 15 Estim Creat Clear Calc 99.8 Estimated GFR > 60 Random Glucose 90 Calcium 8.0 L Microbiology Microbiology Results: Microbiology 12/31/22 22:00 Gram Stain - Final Abdomen - Wound Routine Culture - Final No growth after 2 days 12/31/22 19:01 Blood Culture - Preliminary Blood - Venous No growth after 48 hours. 12/31/22 00:00 Urine Culture - Final Urine clean catch - Clean Catch Midstream Escherichia coli 12/31/22 19:01 Blood Culture - Preliminary Blood - Venous No growth after 48 hours. Assessment and Plan (1) DENISE (acute kidney injury): Status: Acute (2) HTN (hypertension): Status: Acute Plan hospital d#4 72 year old female with history of hypertension, unspecified dementia with mood disorder admitted to general surgery for management of incarcerated right inguinal hernia causing complete bowel obstruction s/p open right femoral hernia repair with lysis of adhesions and plug repair 2/5 hospitalist consult placed for medical management. #incarcerated right inguinal hernia causing complete bowel obstruction s/p open right femoral hernia repair with lysis of adhesions and plug repair POD#3 - diet advanced # prerenal DENISE - resolved with IV fluids # hypoK - repleted # HTN - continue amlodipine + losartan # E coli UTI - cefuroxime 500 mg bid x7d # dementia with mood disorder - continue memantine + escitalopram # VTE ppx: LMWH Thank you for this consultation. We are signing off the case at this time. Please communicate with us if any new medical questions arise. Time Spent With Patient Time: Total time managing care of this patient today __25__ minutes. Quality Stroke Does the patient have a stroke diagnosis?: No VTE Prior VTE?: No VTE Risk Level:: Surgical - moderate VTE Device Contraindication: N/A - Device Ordered VTE Drug Contraindication: Treatment Not Indicated
[2023-01-03 12:00] VITALS: BP 136/78; PULSE 85; RESP 85; TEMP 36.8; O2SAT 96
--- NOTE | 2023-01-03 13:06 | PM.PNGS ---
Subjective Subjective Date of Service: 01/03/23 <Zayra Vazquez PA-C - Last Filed: 01/03/23 13:12> 01/03/23 <Ed Staley MD - Last Filed: 01/03/23 13:27> Interval history: Seen with daughter. She feels well this afternoon. Tolerating solid diet without N/V. Has had multiple bowel movements. OOB and ambulating without difficulty. Denies abd pain. Wants to go home. <Zayra Vazquez PA-C - Last Filed: 01/03/23 13:12> Physical Exam Vital Signs: Vital Signs: Last Vital Signs Temp 98.2 F 01/03/23 07:39 Pulse 87 01/03/23 07:39 Resp 24 H 01/03/23 07:39 BP 139/79 01/03/23 07:39 Pulse Ox 96 01/03/23 07:39 O2 Del Method 01/03/23 07:39 O2 Flow Rate 2 12/31/22 22:20 Oxygen Flow Rate 2 12/31/22 18:46 BMI result Body Mass Index 27.3 <Zayra Vazquez PA-C - Last Filed: 01/03/23 13:12> Const: General: comfortable, no acute distress and alert <MARIA GUADALUPE Huang Last Filed: 01/03/23 13:12> Orientation/consciousness: patient oriented x3 <Zayra Vazquez PA-C - Last Filed: 01/03/23 13:12> Resp: Effort & Inspection: normal respiratory effort <Zayra Vazquez PA-C - Last Filed: 01/03/23 13:12> GI: Inspection: No distended and Yes incision (clean, well approximated) <MARIA GUADALUPE Huang Last Filed: 01/03/23 13:12> Palpation (GI): Soft to palpation, nontender, no guarding and not rigid <MARIA GUADALUPE Huang Last Filed: 01/03/23 13:12> Percussion: Yes normal to percussion <MARIA GUADALUPE Huang Last Filed: 01/03/23 13:12> Skin: General skin exam: no rashes or lesions noted <Zayra Vazquez PA-C - Last Filed: 01/03/23 13:12> Neuro: General: patient oriented x3 <Zayra Vazquez PA-C - Last Filed: 01/03/23 13:12> Objective Data Active Medications Acetaminophen (Acetaminophen 325 Mg Tablet) 650 mg PO Q6H PRN PRN Reason: Mildpain Amlodipine Besylate (Amlodipine Besylate 10 Mg Tablet) 10 mg PO DAILY [facility]; Protocol Last Admin: 01/03/23 08:26 Dose: 10 mg Documented By: EZEKIEL Cefuroxime Axetil (Cefuroxime Axetil 500 Mg Tablet) 500 mg PO Q12H [facility] Last Admin: 01/03/23 09:31 Dose: 500 mg Documented By: EZEKIEL Escitalopram Oxalate (Escitalopram Oxalate 10 Mg Tablet) 10 mg PO DAILY [facility] Last Admin: 01/03/23 08:26 Dose: 10 mg Documented By: EZEKIEL Fentanyl (Fentanyl Citrate/Pf 100 Mcg/2 Ml Vial) 50 mcg IVPUSH Q5M PRN; Protocol PRN Reason: Pain, Severe (Pain Scale 7-10) Guaifenesin/Dextromethorphan (Guaifenesin Dm 100/10/5 Ml 5 Ml Syrup) 5 ml PO Q4H PRN PRN Reason: Cough Hydromorphone HCl (Hydromorphone Hcl 0.5 Mg/0.5 Ml Syringe) 0.25 mg IVPUSH Q2H PRN; Protocol PRN Reason: Pain, Moderate (Pain Scale 4-6 Last Admin: 01/02/23 08:53 Dose: 0.25 mg Documented By: EZEKIEL Lactated Ringer's (Lr) 1,000 mls @ 50 mls/hr IVCONT .Q20H [facility] Last Admin: 01/02/23 17:37 Dose: 50 mls/hr Documented By: ELSI Promethazine HCl 12.5 mg/ (Sodium Chloride) 50.5 mls @ 202 mls/hr IV ONCE PRN PRN Reason: Nausea and Vomiting Losartan Potassium (Losartan Potassium 25 Mg Tablet) 25 mg PO BEDTIME [facility]; Protocol Last Admin: 01/02/23 20:25 Dose: 25 mg Documented By: ELSI Memantine (Memantine Hcl 5 Mg Tablet) 5 mg PO BEDTIME [facility] Last Admin: 01/02/23 20:25 Dose: 5 mg Documented By: ELSI Ondansetron HCl (Ondansetron Hcl 4 Mg/2 Ml Vial) 4 mg IVPUSH Q6H PRN PRN Reason: Nausea and Vomiting Oxycodone HCl (Oxycodone Hcl Immed Release 5 Mg Tablet) 5 mg PO Q6H PRN PRN Reason: mnodeate pain Last Admin: 01/03/23 09:31 Dose: 5 mg Documented By: EZEKIEL Sodium Chloride (0.9 % Sodium Chloride Flush 3 Ml Syringe) 3 ml IVFLUSH QSHIFT [facility] Last Admin: 01/03/23 08:26 Dose: Not Given Documented By: EZEKIEL Non-Admin Reason: IV Running Vitamin D (Cholecalciferol (Vitamin D3) 25 Mcg Tablet) 50 mcg PO BEDTIME [facility] Last Admin: 01/02/23 20:26 Dose: 50 mcg Documented By: ELSI <Zayra Vazquez PA-C - Last Filed: 01/03/23 13:12> Labs CBC & Chem 7: 01/02/23 05:10 01/03/23 05:24 <Zayra Vazquez PA-C - Last Filed: 01/03/23 13:12> Labs: Laboratory Results - last 24 hr 01/03/23 05:24 Anion Gap 15 Estim Creat Clear Calc 99.8 Estimated GFR > 60 Random Glucose 90 Calcium 8.0 L <Zayra Vazquez PA-C - Last Filed: 01/03/23 13:12> Microbiology Microbiology Results: Microbiology 12/31/22 22:00 Gram Stain - Final Abdomen - Wound Routine Culture - Final No growth after 2 days 12/31/22 19:01 Blood Culture - Preliminary Blood - Venous No growth after 48 hours. 12/31/22 00:00 Urine Culture - Final Urine clean catch - Clean Catch Midstream Escherichia coli 12/31/22 19:01 Blood Culture - Preliminary Blood - Venous No growth after 48 hours. <Zayra Vazquez PA-C - Last Filed: 01/03/23 13:12> Procedures Date of Service Date of Service: 01/03/23 <Zayra Vazquez PA-C - Last Filed: 01/03/23 13:12> Progress Note: A&P Assessment and plan (1) Femoral hernia of right side with obstruction: Status: Acute <Zayra Vazquez PA-C - Last Filed: 01/03/23 13:12> Assessment and Plan: Tolerating solid diet with good GI function. SBO now resolved. Abd benign with clean incision. She is stable for discharge to home. She prefers to take tylenol for the pain. She is to follow up with Dr. Staley in the office in 1 week. Educated no heavy lifting and signs and symptoms to call the office or return to the ED. Cleared by medical service for d/c on PO course of cefuroxime for UTI. <Zayra Vazquez PA-C - Last Filed: 01/03/23 13:12> Tolerating solid diet with good GI function. SBO now resolved. Abd benign with clean incision. She is stable for discharge to home. She prefers to take tylenol for the pain. She is to follow up with Dr. Staley in the office in 1 week. Educated no heavy lifting and signs and symptoms to call the office or return to the ED. Cleared by medical service for d/c on PO course of cefuroxime for UTI. Patient seen at about 07:45. She seems to be tolerating diet and had a bowel movement again. Good pain management and Tylenol. Plan for discharge and follow-up with me in 1 week <Ed Staley MD - Last Filed: 01/03/23 13:27> Time Spent With Patient Time: Total time managing care of this patient today ____ minutes. <Zayra Vazquez PA-C - Last Filed: 01/03/23 13:12> Quality Stroke Does the patient have a stroke diagnosis?: No <Zayra Vazquez PA-C - Last Filed: 01/03/23 13:12> VTE Prior VTE?: No <MARIA GUADALUPE Huang Last Filed: 01/03/23 13:12> VTE Risk Level:: Surgical - moderate <MARIA GUADALUPE Huang Last Filed: 01/03/23 13:12> VTE Device Contraindication: N/A - Device Ordered <MARIA GUADALUPE Huang Filed: 01/03/23 13:12> VTE Drug Contraindication: Treatment Not Indicated <Zayra Vazquez PA-C - Last Filed: 01/03/23 13:12>
--- NOTE | 2023-01-03 13:27 | P.DS_ITS ---
DS: Providers Provider Date of Service: 01/03/23 Date of admission: 12/31/22 19:22 Primary care physician: Carol Prescott MD Consults: 12/31/22 17:27 Consult to General Surgery Stat Consulting Provider: Ed Staley Reason for consultation: sbo 12/31/22 19:38 Consult to Hospitalist Routine Consulting Provider: Hospitalist Reason For Exam: medical management DS: Diagnosis Discharge Diagnosis (1) Femoral hernia of right side with obstruction: Status: Acute DS: Summary Hospital Course Hospital Course: See surgical H&P for full details. Briefly, the patient is 72 year old Occitan-speaking woman with dementia and hypertension who presented with of bowel obstructions secondary to an incarcerated femoral hernia. Following unsuccessful attempted reduction in the emergency room under MAC, the patient was taken to surgery and had femoral hernia repair with plug. Postoperatively, her NG output tapered off and she had bowel movements. Her NG was removed, diet advanced and she was discharged on 01/03/2023 in improved condition tolerating her diet. Time Spent with Patient Time attestation: Total time managing care of this patient today ____ minutes. Discharge coordination time: Less than 30 minutes Quality: Safe Use of Opioids Does Pt have an Active Cancer Diagnosis on the Problem List?: No Quality: Stroke Does the patient have a stroke diagnosis?: No Physical Exam Vital Signs: Vital Signs: Last Vital Signs Temp 98.2 F 01/03/23 07:39 Pulse 87 01/03/23 07:39 Resp 24 H 01/03/23 07:39 BP 139/79 01/03/23 07:39 Pulse Ox 96 01/03/23 07:39 O2 Del Method 01/03/23 07:39 O2 Flow Rate 2 12/31/22 22:20 Oxygen Flow Rate 2 12/31/22 18:46 BMI result Body Mass Index 27.3 DS: Data Data Completed and Pending Completed studies during hospitalization [Text1]: Pending at discharge 12/31/22 21:23 Surgical [PTH] Routine Labs on day of discharge: Laboratory Results - last 24 hr 01/03/23 05:24 Sodium 141 Potassium 3.4 Chloride 111 H Carbon Dioxide 18 L Anion Gap 15 BUN 6 L Creatinine 0.43 L Estim Creat Clear Calc 99.8 Estimated GFR > 60 Random Glucose 90 Calcium 8.0 L Preliminary micro results at discharge 12/31/22 19:01 Blood Culture - Preliminary Blood - Venous No growth after 48 hours. 12/31/22 19:01 Blood Culture - Preliminary Blood - Venous No growth after 48 hours. Discharge Plan Discharge Anticipated Discharge Date/Time: 01/03/23 13:12 Patient Disposition: Home, Self-Care Discharge Diagnosis: Repair of incarcerated right femoral hernia Referrals: Carol Prescott MD [Primary Care Provider] - 1 Week Ed Staley MD [Physician] - 1 Week Discharge Medications: New cefuroxime axetil 500 mg tablet 500 mg PO BID Qty: 13 0RF Continued simethicone 180 mg capsule 1 cap PO BID amlodipine 10 mg tablet 1 tab PO DAILY losartan 25 mg tablet 1 tab PO BEDTIME escitalopram oxalate 10 mg tablet 1 tab PO DAILY memantine 5 mg tablet 1 tab PO BEDTIME cholecalciferol (vitamin D3) 50 mcg (2,000 unit) tablet 1 tab PO BEDTIME Discharge Orders: Discharge Order (Routine); Ordered 01/03/23 Ordered By: Zayra Vazquez Diet: Advance to usual diet Activity on Discharge: No heavy lifting Stand Alone Forms: Patient Portal Discharge page Activity Restrictions/Additional Instructions: You had a hernia repair by Dr. Staley. To allow adequate healing, you must not lift more than 20 lb for the next 4 weeks. You can walk up and down stairs and around the house. If you have questions regarding a specific activity, please ask Dr. Staley. You can shower today, Sunday, January 03. Do not soak in a tub or pool until your incisions are completely healed, which usually takes at least 2 to 3 weeks, sometimes longer. You can allow soap and water to run over your incisions in a shower and Steri-Strips and thoroughly rinse the area. There are paper tapes known as butterflies/Steri-Strips on your incisions, leave them in place and they will fall off on their own in the next 1-2 weeks. You do not need to place a new bandage on your incision unless your clothing rubs on the incision and causes irritation. You may find that pants with an elastic waist or suspenders are more comfortable than pants with a belt until your incision completely heals. You should not soak in a tub or go into a pool for the next month. Please allow the paper tapes to dry before dressing. Be sure to schedule a follow-up appointment a week after surgery. Bruising and swelling is normal and to be expected. Due to gravity, this may track down towards your pubic area which is normal. If the area becomes hot, red, swollen or drains pus, if you have worsening pains, fevers over 100F, jeremias re abdominal or chest pain or trouble breathing, please report to the nearest emergency department. If your right leg becomes swollen, please contact the office. You should purchase fxie-kbm-wdmtouq stool softener known as Colace/docusate, 100 mg and take 2 tablets in the morning with breakfast and 2 tablets after dinner in the evening until you are no longer taking narcotics and are having normal bowel movements. If you experience diarrhea while taking stool softeners, this is normal and will resolve a day or 2 after you stop the medication. You should resume your regular medications unless otherwise directed by Dr. Staley. You can take ryyk-awg-xygirpa Tylenol/acetaminophen with mzjh-fkz-qjzotmq ibuprofen or naproxen for pain unless you have an allergy or medical reason you are not not allowed to take these medications, such as peptic ulcers, taking blood thinners or kidney problems. You should also use ice packs to the operative site to help minimize pain and swelling for the 1st 3 days, or as needed afterwards. Unless there is a medical reason to avoid these medicines, you should take 2 epxb-xia-ygydesl Tylenol with two (2) esjy-eev-zykypye ibuprofen together, every 6 hours for the first 3 days to help with pain. Care Plan Goals: Allow adequate postoperative healing Health Concerns: Follow-up with PCP for dementia and medical problem Plan of Treatment: Allow adequate postoperative healing for a month Assessment: Open repair of incarcerated right femoral hernia
--- NOTE | 2023-01-03 13:36 | MHC.CM.PN ---
PT MEDICALLY CLEARED FOR D/C HOME SELF-CARE, PER PREVIOUS NOTES PT WILL ARRANGE RIDE HOME.
[2023-01-03 14:59] VITALS: BP 162/69; PULSE 81; RESP 17; TEMP 36.6; O2SAT 97
--- NOTE | 2023-01-05 16:27 | PM.EVENT ---
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 discussed with ID, no need to repeat blood cultures or treat with antibiotics at this time - recommended to follow up with PCP Called patient and spoke with daughter, her HCP who understands and states that she has a follow up appointment with her PCP on 01/10 and will discuss it further with them Time Spent With Patient Time: Total time managing care of this patient today ____ minutes.
== END 2023-01-03 15:53 | disposition home or self-care (01) | DRG 854 ==
LOC: HO.ED 18:51 → HO.SSS 19:00 → HO.S3 19:55
PROVIDERS: Family Medicine; Nurse Practitioner Family; Physician Assistant; Admitting Provider Surgery; Emergency Provider Internal Medicine; PCP Internal Medicine; Visit Provider Surgery
PROC: 0YU50JZ Supplement Right Inguinal Region with Synthetic Substitute, Open Approach (ICD-10-PCS; principal; 2022-12-31 20:15)
DX: A41.9 Sepsis, unspecified organism (principal); F03.93 Unspecified dementia, unspecified severity, with mood disturbance; K40.30 Unilateral inguinal hernia, with obstruction, without gangrene, not specified as recurrent; N17.9 Acute kidney failure, unspecified; N39.0 Urinary tract infection, site not specified; K56.7 Ileus, unspecified; B96.20 Unspecified Escherichia coli [E. coli] as the cause of diseases classified elsewhere; K66.0 Peritoneal adhesions (postprocedural) (postinfection); I10 Essential (primary) hypertension; Z20.822 Contact with and (suspected) exposure to COVID-19; Z79.899 Other long term (current) drug therapy
CPT/HCPCS: 0241U; 36415; 71045; 74176; 80048; 80076; 81001; 82140; 83605; 83690; 83735; 84484; 85007; 85025; 85027; 85610; 87040; 87070; 87076; 87086; 87088; 87185; 87186; 87205; 88302; 93005; 99285; C1758; C1781; J1100; J1170; J2405; J2543; J3010

== ENCOUNTER 2024-04-10 11:11 | Outpatient (REF) | payer MEDICARE, MEDICAID, SELFPAY ==
[2024-04-10 13:02] LABS: MANUAL DIFF FLAG NO
[2024-04-10 13:10] LABS: Basophils Absolute Auto 0.1 X10*3/uL (0.0-0.2); Basophils Percent Auto 0.6 % (0-2); Eosinophils Absolute Auto 0.1 X10*3/uL (0.0-0.4); Eosinophils Percent Auto 0.5 % (0-4); Hematocrit 39.6 % (37.0-47.0); Hemoglobin 12.6 g/dl (12.0-16.0); Imm Gran Abs Auto 0.05 X10*3/uL (0.00-0.03); Imm Gran Pct Auto 0.5 % (0.0-0.4); Lymphocytes Absolute Auto 1.3 X10*3/uL (1.2-4.9); Lymphocytes Percent Auto 12.6 % (20-40); Mean Corpuscular HGB Conc 31.8 g/dl (31.0-35.0); Mean Corpuscular Hemoglobin 29.1 pg (27.0-33.0); Mean Corpuscular Volume 91.5 fL (80.0-98.0); Mean Platelet Volume 9.9 fL (9.4-12.3); Monocytes Absolute Auto 0.7 X10*3/uL (0.1-1.2); Monocytes Percent Auto 6.4 % (2-11); Neutrophils Absolute Auto 8.1 x10*3/uL (2.0-8.3); Neutrophils Percent Auto 79.4 % (45-73); Platelet Count 465 X10*3/uL (160-400); Red Blood Count 4.33 X10*6/uL (4.20-5.50); Red Cell Distribution Width 13.2 % (11.0-16.0); White Blood Count 10.2 X10*3/uL (4.8-10.8)
[2024-04-10 13:32] LABS: Estimated Average Glucose 128 mg/dL; Hemoglobin A1c % 6.1 % (<6.0)
[2024-04-10 14:02] LABS: Alanine Aminotransferase 12 U/L (0-31); Albumin Level 4.1 g/dL (3.5-5.0); Alkaline Phosphatase 93 U/L (39-117); Anion Gap 14 (12-20); Aspartate Amino Transferase 18 U/L (5-31); Bilirubin Direct < 0.2 mg/dL (0.0-0.5); Bilirubin Total 0.2 mg/dL (0.0-1.0); Blood Urea Nitrogen 11 mg/dL (9-16); Calcium 9.5 mg/dL (8.4-10.2); Carbon Dioxide 22 mmol/L (22-29); Chloride 106 mmol/L (96-108); Cholesterol 182 mg/dL (<200); Estimated Glomerular Filt Rate > 60; Glucose Random 102 mg/dL (60-115); HDL Cholesterol 81 mg/dL (>40); LDL Cholesterol Calculated 86 mg/dL (<100); Potassium 3.9 mmol/L (3.3-5.1); Sodium 138 mmol/L (135-145); TSH reflex Free T4 1.23 uIU/mL (0.32-4.0); Total Protein 7.9 g/dL (6.5-8.0); Triglycerides 77 mg/dL (<150)
[2024-04-10 14:04] LABS: Folate 13.2 ng/mL (> or = 4.0); Vitamin B12 389 pg/mL (200-900)
[2024-04-11 08:49] LABS: ~Hepatitis C Antibody Nonreactive (Nonreactive)
[2024-04-13 16:34] LABS: RPR Rapid Plasma Reagin NON-REACTIVE (NON-REACTIVE)
== END 2024-04-10 11:12 | disposition home or self-care (01) ==
LOC: HO.HHCL 11:11
PROVIDERS: Visit Provider Internal Medicine
DX: I10 Essential (primary) hypertension (principal); F03.94 Unspecified dementia, unspecified severity, with anxiety; Z79.899 Other long term (current) drug therapy; F41.8 Other specified anxiety disorders
CPT/HCPCS: 36415; 80048; 80061; 80076; 82607; 82746; 83036; 84443; 85025; 86592; 86803

== ENCOUNTER 2025-02-06 11:58 | Outpatient (REF) | payer MEDICARE, MEDICAID, SELFPAY ==
[2025-02-06 13:31] LABS: MANUAL DIFF FLAG NO
[2025-02-06 14:33] LABS: Estimated Average Glucose 123 mg/dL; Hemoglobin A1C 118.3631 umol/L; Hemoglobin A1c % 5.9 % (<6.0)
[2025-02-06 14:34] LABS: Appearance Urine Cloudy; Color Urine Yellow; Glucose Urine UA Negative (Negative); Leukocyte Esterase Urine Small (1+) (Negative); Nitrite Urine Positive (Negative); Specific Gravity - Urine >= 1.030 (1.005-1.025); UMIC TRIGGER UACC YES; Urine Blood Trace (Negative); Urine Ketones Trace mg/dL (Negative); Urine Protein 100 (2+) mg/dL (Neg-Trace)
[2025-02-06 14:36] LABS: Bacteria Urine 4+ (None Seen); Hyaline Casts Urine 0-2 /LPF (0-2); UACC Culture Trigger YES; WBC Urine 21-50 /HPF (0-5)
[2025-02-06 14:53] LABS: Alanine Aminotransferase 15 U/L (0-31); Alkaline Phosphatase 99 U/L (39-117); Anion Gap 15 (12-20); Aspartate Amino Transferase 30 U/L (5-31); Bilirubin Total 0.4 mg/dL (0.0-1.0); Blood Urea Nitrogen 13 mg/dL (9-16); Calcium 9.3 mg/dL (8.4-10.2); Carbon Dioxide 19 mmol/L (22-29); Chloride 110 mmol/L (96-108); Estimated Glomerular Filt Rate > 60; Glucose Random 100 mg/dL (60-115); Iron 64 mcg/dL (30-160); Percent Iron Saturation 22 % (15-50); Potassium 3.9 mmol/L (3.3-5.1); Sodium 140 mmol/L (135-145); Total Iron Binding Capacity 288 mcg/dL (228-428); Total Protein 8.2 g/dL (6.5-8.0); Unsaturated Iron Binding 224 ug/dL
[2025-02-06 15:14] LABS: Basophils Absolute Auto 0.1 X10*3/uL (0.0-0.2); Basophils Percent Auto 0.8 % (0-2); Eosinophils Absolute Auto 0.1 X10*3/uL (0.0-0.4); Eosinophils Percent Auto 0.8 % (0-4); Hematocrit 37.9 % (37.0-47.0); Hemoglobin 12.1 g/dl (12.0-16.0); Imm Gran Abs Auto 0.03 X10*3/uL (0.00-0.03); Imm Gran Pct Auto 0.3 % (0.0-0.4); Lymphocytes Absolute Auto 1.7 X10*3/uL (1.2-4.9); Lymphocytes Percent Auto 14.8 % (20-40); Mean Corpuscular HGB Conc 31.9 g/dl (31.0-35.0); Mean Corpuscular Hemoglobin 29.4 pg (27.0-33.0); Mean Corpuscular Volume 92.2 fL (80.0-98.0); Mean Platelet Volume 11.9 fL (9.4-12.3); Monocytes Absolute Auto 0.7 X10*3/uL (0.1-1.2); Monocytes Percent Auto 5.9 % (2-11); Neutrophils Percent Auto 77.4 % (45-73); PLT CLUMP 1; Platelet Count 252 X10*3/uL (160-400); Red Blood Count 4.11 X10*6/uL (4.20-5.50); Red Cell Distribution Width 12.3 % (11.0-16.0); SCAN SMEAR FLAG 1; TSH reflex Free T4 0.73 uIU/mL (0.32-4.0); White Blood Count 11.6 X10*3/uL (4.8-10.8)
[2025-02-06 15:21] LABS: Folate 14.7 ng/mL (> or = 4.0); Vitamin B12 395 pg/mL (200-900)
[2025-02-09 16:09] LABS: Homocysteine 15.5 umol/L (<10.4)
[2025-02-11 12:58] LABS: Methylmalonic Acid 123 nmol/L (69-390)
== END 2025-02-06 11:59 | disposition home or self-care (01) ==
LOC: HO.HHCL 11:58
PROVIDERS: Visit Provider Internal Medicine
DX: R73.03 Prediabetes (principal); R63.8 Other symptoms and signs concerning food and fluid intake; F03.90 Unspecified dementia, unspecified severity, without behavioral disturbance, psychotic disturbance, mood disturbance, and anxiety
CPT/HCPCS: 36415; 80053; 81001; 82607; 82746; 83036; 83090; 83540; 83921; 84443; 85025; 87086; 87088; 87186